=== PATIENT | male | born 1990 | race Caucasian/White ===

== ENCOUNTER 2018-10-10 20:47 | Emergency (ER) | payer SELFPAY ==
[~2018-10-10] VITALS: Ht 185.4 cm; Wt 88.6 kg
[2018-10-10] MEDS ORDERED: HALOPERIDOL 5 MG/ML VIAL (J1630) IM ONE (21:00)
[2018-10-10] MEDS ORDERED: diphenhydrAMINE INJ 50MG/ML VIAL (J1200) IM ONE (21:00)
[2018-10-10 21:48] LABS: HEMATOCRIT 42.9 % (42.0-52.0); HEMOGLOBIN 14.5 g/dl (13.5-17.5); MEAN CORPUSCULAR HEMOGLOBIN 31.3 pg (27.0-33.0); MEAN CORPUSCULAR HGB CONC 33.8 g/dl (32.0-36.5); MEAN CORPUSCULAR VOLUME 92.5 fl (80.0-96.0); PLATELET COUNT, AUTOMATED 194 10^3/uL (150-450); RED BLOOD COUNT 4.64 10^6/uL (4.30-6.10); WHITE BLOOD COUNT 8.8 10^3/uL (4.0-10.0)
[2018-10-10] MEDS ORDERED: HALOPERIDOL 5 MG/ML VIAL (J1630) IM STA (21:58)
[2018-10-10 22:39] LABS: ALT/SGPT 64 U/L (12-78); BILIRUBIN,DIRECT 0.2 MG/DL (0.0-0.2); BILIRUBIN,TOTAL 0.7 MG/DL (0.2-1.0); BLOOD UREA NITROGEN 12 MG/DL (7-18); CALCIUM LEVEL 8.6 MG/DL (8.5-10.1); CARBON DIOXIDE LEVEL 25 MEQ/L (21-32); CHLORIDE LEVEL 107 MEQ/L (98-107); CREATININE FOR GFR 1.12 MG/DL (0.70-1.30); GLOMERULAR FILTRATION RATE > 60.0 (>60); GLUCOSE, FASTING 120 MG/DL (70-100); POTASSIUM SERUM 3.6 MEQ/L (3.5-5.1); SALICYLATE LEVEL < 1.7 MG/DL (5.0-30.0); SODIUM LEVEL 142 MEQ/L (136-145); TOTAL PROTEIN 7.7 GM/DL (6.4-8.2)
[2018-10-10 22:42] LABS: ACETAMINOPHEN LEVEL < 2.0 UG/ML (10.0-30.0); ETHYL ALCOHOL (ETHANOL) < 0.003 % (0.000-0.010)
--- NOTE | 2018-10-10 22:55 | REPVR ---
EXAM: CT Head Without Contrast EXAM DATE/TIME: 10/10/2018 10:32 PM CLINICAL HISTORY: 28 years old, male; Injury or trauma; Injury history: Hit head off wall multiple times; Initial encounter; Blunt trauma (contusions or hematomas); Consciousness not specified; Additional info: Tr TECHNIQUE: Imaging protocol: Axial computed tomography images of the head without contrast. Radiation optimization: All CT scans at this facility use at least one of these dose optimization techniques: automated exposure control; mA and/or kV adjustment per patient size (includes targeted exams where dose is matched to clinical indication); or iterative reconstruction. COMPARISON: No relevant prior studies available. FINDINGS: Brain: Normal. No hemorrhage. Unremarkable white matter. No mass effect. Ventricles: Normal. No ventriculomegaly. Bones/joints: Unremarkable. No acute fracture. Sinuses: Visualized sinuses are unremarkable. No fluid levels. Mastoid air cells: Visualized mastoid air cells are well aerated. No mastoid effusion. Soft tissues: Frontal scalp injury. IMPRESSION: No acute intracranial abnormality. Electronically signed by: Елена Plasencia On 10/10/2018 22:55:10 PM
[2018-10-10 23:40] VITALS: BP 114/59
[2018-10-10 23:58] LABS: AMPHETAMINES LEVEL URINE POSITIVE (NEGATIVE); BARBITURATES URINE NEGATIVE (NEGATIVE); BENZODIAZEPINES URINE NEGATIVE (NEGATIVE); CANNABINOIDS URINE NEGATIVE (NEGATIVE); COCAINE METABOLITE URINE POSITIVE (NEGATIVE); METHADONE URINE NEGATIVE (NEGATIVE); OPIATES URINE POSITIVE (NEGATIVE); PHENCYCLIDINE URINE NEGATIVE (NEGATIVE)
== END 2018-10-11 00:28 | disposition home or self-care (01) ==
LOC: M ED 20:47
DX: F19.10 Other psychoactive substance abuse, uncomplicated (principal); F98.9 Unspecified behavioral and emotional disorders with onset usually occurring in childhood and adolescence; Z78.1 Physical restraint status
CPT/HCPCS: 36415; 70450; 80048; 80076; 80307; 84443; 85027; 96372; 99285; G0480; J1200; J1630

== ENCOUNTER 2019-08-08 08:58 | Emergency (ER) | payer MEDICAID, SELFPAY ==
[~2019-08-08] VITALS: Ht 185.4 cm; Wt 86.0 kg
[2019-08-08] MEDS ORDERED: NS 1,000 ML IV ONE (09:30)
[2019-08-08] MEDS ORDERED: ONDANSETRON 4MG/2ML VIAL IV ONE (10:00)
[2019-08-08] MEDS ORDERED: MORPHINE 2 MG/ML 1ML VIAL (J2270) IV PRN (10:00)
[2019-08-08 10:05] LABS: BASO # 0.1 10^3/uL (0.0-0.2); BASO % 0.6 % (0.0-1.0); EOS # 0.2 10^3/uL (0.0-0.5); EOS % 1.7 % (0.0-3.0); HEMATOCRIT 32.1 % (42.0-52.0); HEMOGLOBIN 10.4 g/dl (13.5-17.5); LYMPH # 2.4 10^3/uL (1.5-5.0); LYMPH % 25.2 % (24.0-44.0); MEAN CORPUSCULAR HEMOGLOBIN 28.9 pg (27.0-33.0); MEAN CORPUSCULAR HGB CONC 32.4 g/dl (32.0-36.5); MEAN CORPUSCULAR VOLUME 89.2 fl (80.0-96.0); MONO # 1.2 10^3/uL (0.0-0.8); MONO % 12.9 % (0.0-5.0); NEUTROPHILS # 5.6 10^3/uL (1.5-8.5); NEUTROPHILS % 59.2 % (36.0-66.0); PLATELET COUNT, AUTOMATED 253 10^3/uL (150-450); WHITE BLOOD COUNT 9.5 10^3/uL (4.0-10.0)
[2019-08-08 10:16] LABS: INR 1.04; PROTHROMBIN TIME 13.3 SECONDS (11.8-14.0)
[2019-08-08 10:17] LABS: PARTIAL THROMBOPLASTIN TIME 35.8 SECONDS (25.0-38.4)
[2019-08-08 10:36] LABS: ALBUMIN 3.2 GM/DL (3.2-5.2); ALT/SGPT 48 U/L (12-78); AMYLASE 22 U/L (25-115); BILIRUBIN,DIRECT 0.2 MG/DL (0.0-0.2); BILIRUBIN,TOTAL 0.7 MG/DL (0.2-1.0); C REACTIVE PROTEIN QUANTITATIV 6.57 MG/DL (0.00-0.30); CK-MB VALUE MASS 1.6 NG/ML (<3.6); CPK CREATINE PHOSPHOKINASE 65 U/L (39-308); LIPASE 58 U/L (73-393); MB/CK RELATIVE INDEX 2.46 (< OR =4); TOTAL PROTEIN 7.9 GM/DL (6.4-8.2); TROPONIN I < 0.02 NG/ML (< 0.10)
[2019-08-08 10:37] LABS: ERYTHROCYTE SEDIMENTATION RATE 109 mm/hr (0-15)
--- NOTE | 2019-08-08 11:33 | REP ---
Clinical: Pain. Redness. Technique: AP, lateral, bilateral oblique views of the left ankle. Findings: Swelling suggested. No acute fracture or dislocation. Ankle mortise intact. Impression: Soft-tissue swelling. No acute fracture. Electronically Signed by Oscar Rajput MD 08/08/2019 11:25 A
--- NOTE | 2019-08-08 11:34 | REP ---
Clinical: Rule out foreign body. IVDA. Comparison: None . Findings: The mediastinum and cardiac silhouette are stable and within normal limits for portable technique. The lung carter are clear without acute consolidation, effusion, or pneumothorax. Skeletal structures are intact. No foreign body identified. Impression: No acute cardiopulmonary process appreciated. Electronically Signed by Oscar Rajput MD 08/08/2019 11:26 A
--- NOTE | 2019-08-08 11:35 | REP ---
Clinical: IVDA. Rule out foreign body. Technique: Single supine view of the abdomen and pelvis. Findings: Bowel gas pattern is nonspecific. No organomegaly. No abnormal calcifications or foreign body. Skeletal structures are intact. Impression: Nonspecific abdominal radiograph. Electronically Signed by Oscar Rajput MD 08/08/2019 11:27 A
--- NOTE | 2019-08-08 11:37 | REP ---
Clinical: Rule out foreign body. IUDA. Technique: AP, lateral, and swimmers views. Findings: No acute fracture / compression injury or subluxation. No significant degenerative changes. Paravertebral soft tissues are normal. No foreign body identified. Impression: No foreign body identified. Electronically Signed by Oscar Rajput MD 08/08/2019 11:28 A
--- NOTE | 2019-08-08 11:38 | REP ---
Clinical: IVDA. Foreign body. Technique: AP, lateral, bilateral oblique, and coned-down views. Findings: Alignment and lordosis is maintained. The vertebral bodies including transverse process and spinous processes are intact and normal. There is no evidence for acute fracture / compression injury or subluxation. No evidence for spondylolysis or spondylolisthesis. No significant degenerative change is noted. No foreign body identified. Impression: Normal lumbosacral spine radiograph series. Electronically Signed by Oscar Rajput MD 08/08/2019 11:29 A
[2019-08-08] MEDS ORDERED: PROHANCE 279.3MG/ML 5ML VIAL As Ordered ONE (12:08)
[2019-08-08] MEDS ORDERED: PROHANCE 279.3MG/ML 15ML VIAL As Ordered ONE (12:09)
[2019-08-08] MEDS ORDERED: diazePAM 10MG/2ML SYRINGE (J3360 PER 5MG) IV ONE (13:45)
[2019-08-08] MEDS ORDERED: VANCOMYCIN HCL 1,750 MG in D5W 250 ML IV ONE (15:45)
[2019-08-08] MEDS ORDERED: VANCOMYCIN HCL 1,000 MG, VIAL MATE ADAPTER 1 EACH in D5W 250 ML IV ONE (16:00)
[2019-08-08] MEDS ORDERED: ACETAMINOPHEN 325 MG TAB PO ONE (16:00)
[2019-08-08] MEDS ORDERED: VANCOMYCIN HCL 750 MG, VIAL MATE ADAPTER 1 EACH in D5W 250 ML IV ONE (16:00)
[2019-08-08] MEDS ORDERED: CEFEPIME HCL 2 GM in D5W MINI-BAG PLUS 50 ML IV ONE (16:00)
[2019-08-08 18:10] VITALS: BP 120/69
--- NOTE | 2019-08-08 19:30 | ECGEPIP ---
[facility] - ED Test Date: 2019-08-08 Pat Name: MARISSA GREEN Department: Room: - Gender: Male Rand Sewer: evaristo : 1990 Requested By: Justin Louise Order Number: [id number] Reading MD: Justin Louise Measurements Intervals [place] Rate: 82 P: 35 WV: 151 QRS: 65 QRSD: 93 T: 21 QT: 354 QTc: 414 Interpretive Statements SINUS RHYTHM NONSPECIFIC ST T WAVE CHANGES NO PRIOR ECG FOR COMPARISON DELAYED R WAVE PROGRESSION Electronically Signed on 08-08-2019 19:29:54 EDT by Justin Louise
== END 2019-08-08 18:19 | disposition short-term general hospital (02) ==
LOC: M ED 08:58
DX: G06.2 Extradural and subdural abscess, unspecified (principal); L03.116 Cellulitis of left lower limb; F19.10 Other psychoactive substance abuse, uncomplicated; M25.572 Pain in left ankle and joints of left foot; Z87.891 Personal history of nicotine dependence
CPT/HCPCS: 36415; 71045; 72072; 72110; 72157; 72158; 73610; 74018; 80047; 80076; 81001; 82150; 82550; 82553; 83605; 83690; 85025; 85610; 85652; 85730; 86140; 86850; 86900; 86901; 87040; 93005; 93041; 96365; 96366; 96368; 96375; 99285; A9576; J0692; J2270; J2405; J3360; J3370

== ENCOUNTER 2019-08-27 07:54 | Inpatient (IN) | payer MEDICAID, OTHER ==
[~2019-08-27] VITALS: Ht 185.4 cm; Wt 88.0 kg
[2019-08-27] MEDS ORDERED: LORazepam 2 MG TAB PO STA (07:56)
[2019-08-27 08:36] LABS: HEMOGLOBIN 11.1 g/dl (13.5-17.5); MEAN CORPUSCULAR HGB CONC 32.6 g/dl (32.0-36.5); MEAN CORPUSCULAR VOLUME 88.8 fl (80.0-96.0); PLATELET COUNT, AUTOMATED 209 10^3/uL (150-450); RED BLOOD COUNT 3.83 10^6/uL (4.30-6.10); WHITE BLOOD COUNT 7.6 10^3/uL (4.0-10.0)
[2019-08-27] MEDS ORDERED: HYDR-3363 PO (09:00)
[2019-08-27] MEDS ORDERED: MAG400TA PO (09:00)
[2019-08-27] MEDS ORDERED: LEVO750T13 PO (09:00)
[2019-08-27] MEDS ORDERED: VITMTA PO (09:00)
[2019-08-27 09:04] LABS: ERYTHROCYTE SEDIMENTATION RATE 63 mm/hr (0-15)
[2019-08-27 09:09] LABS: ACETAMINOPHEN LEVEL < 2.0 UG/ML (10.0-30.0); ALBUMIN 3.6 GM/DL (3.2-5.2); ALT/SGPT 124 U/L (12-78); BILIRUBIN,DIRECT 0.3 MG/DL (0.0-0.2); BILIRUBIN,TOTAL 0.9 MG/DL (0.2-1.0); BLOOD UREA NITROGEN 17 MG/DL (7-18); CALCIUM LEVEL 9.1 MG/DL (8.5-10.1); CARBON DIOXIDE LEVEL 24 MEQ/L (21-32); CHLORIDE LEVEL 105 MEQ/L (98-107); ETHYL ALCOHOL (ETHANOL) < 0.003 % (0.000-0.010); GLOMERULAR FILTRATION RATE > 60.0 (>60); GLUCOSE, FASTING 89 MG/DL (70-100); POTASSIUM SERUM 3.6 MEQ/L (3.5-5.1); SALICYLATE LEVEL < 1.7 MG/DL (5.0-30.0); SODIUM LEVEL 140 MEQ/L (136-145)
[2019-08-27 10:11] LABS: AMPHETAMINES LEVEL URINE NEGATIVE (NEGATIVE); BARBITURATES URINE NEGATIVE (NEGATIVE); BENZODIAZEPINES URINE NEGATIVE (NEGATIVE); CANNABINOIDS URINE NEGATIVE (NEGATIVE); COCAINE METABOLITE URINE POSITIVE (NEGATIVE); METHADONE URINE NEGATIVE (NEGATIVE); OPIATES URINE POSITIVE (NEGATIVE); PHENCYCLIDINE URINE NEGATIVE (NEGATIVE)
[2019-08-27] MEDS ORDERED: LIDOCAINE 1% MDV 20ML VIAL As Ordered ONE (13:05)
[2019-08-27] MEDS ORDERED: ACETAMINOPHEN TAB 650MG DOSE (2X325MG) PO PRN (14:30)
[2019-08-27 15:30] VITALS: BP 160/77
[2019-08-27] MEDS: CEFEPIME HCL 2 GM in D5W MINI-BAG PLUS 50 ML IV SCH ×2 (15:45→23:44)
[2019-08-27] MEDS ORDERED: SLF 3 ML SYR IV PRN (16:00)
--- NOTE | 2019-08-27 16:06 | HPEPDOC ---
General Date of Admission August 27, 2019 at 14:19 Date of Service: August 27, 2019 Chief Complaint The patient is a 29-year-old male who was brought to the ER after he was found with holding a machete at a car wash History of Present Illness Patient is a 29-year-old male with a PMHx of Substance abuse (with Intravenous Methamphetamines and Opiates), Hepatitis C, Anemia, who was recently found to have Osteomyelitis / Diskitis of T8-T9. Patient had originally presented to [facility] on 08/08/19 with complaints of back pain. Imaging completed via MRI head revealed evidence of phlegmon/abscess at the posterior aspect of T8/T9 extending to the right with narrowing of the right lateral recess and compression of the thecal sac. Patient was subsequently transferred to [facility] for further management. Upon transfer to [facility], patient received an IR guided biopsy on 08/09, which had revealed acute and chronic osteomyelitis. Orthopedic surgery was consult and had not recommended any surgery, but did recommended TLSO brace. An echocardiogram was performed and was negative for any evidence of endocarditis. Blood cultures were positive for Enterobacter cloacae. Infectious disease had recommended cefepime 2 g every 8 for total of 6 weeks duration, starting 08/11. Patient was ultimately discharged from [facility] and transferred to [facility] for drug rehabilitation on 08/12. Patient had ultimately left [facility] on 08/20 because he had reported that his girlfriend had left him. Hospitalist service was called for evaluation. Patient was seen and examined while in the behavioral health section of the emergency room. Currently patient denies any headache, nausea, vomiting, chest pain, short of breath, palpitations, abdominal pain, constipation, diarrhea, or urinary discomfort. Patient is not aware of any recent fevers or chills. Patient reports his appetite is fairly normal. Has not reported any significant changes in his weight. Home Medications Scheduled Levofloxacin (Levofloxacin) 750 Mg Tablet, 750 MG PO DAILY, (Reported) FILLED 08/22/19 FOR 14 DAYS Magnesium Oxide (Magnesium Oxide) 400 Mg Tablet, 400 MG PO DAILY, (Reported) Multivitamins (Thera M Plus Tablet) 1 Each Tablet, 1 TAB PO DAILY, (Reported) Scheduled PRN Hydroxyzine HCl (Hydroxyzine HCl) 25 Mg Tablet, 25 MG PO TID PRN for ANXIETY, (Reported) Allergies Coded Allergies: No Known Allergies (Unverified , 10/11/18) Past Medical History Medical History Substance abuse (with Intravenous Methamphetamines and Opiates) Hepatitis C Anemia, Osteomyelitis / Diskitis of T8-T9 Surgical History Patient denies any prior surgical history other than the biopsy that was completed on 08/09 Family History - No history of malignancies Social History - Denies the use of tobacco; patient reports social alcohol use. He does report the use intravenous methamphetamines - Denies recent travel or sick contacts - Lives alone - Unemployed Review of Systems Other systems 10 point review of systems complete, all negative otherwise stated in HPI Vital Signs - Vitals: BP 132/76, HR 82, RR 20, Sat 99%RA, Temp 98.2F - General: Sitting up in bed and eating a meal, Speaking in full sentences, He is oriented to person / place / time - HEENT: NC, AT, PERRLA - CVS: RRR, +S1S2 - Lungs: Fair air entry bilaterally, No appreciable wheezing / rales / rhonchi - Abdomen: Soft, Non-distended, Non-tender - Extremities: Trace pitting edema bilaterally (R>L), No calf tenderness - Neuro: No focal motor or sensory deficit - Skin: No visible rashes Laboratory Data Labs 24H Laboratory Tests 2 08/27/19 07:57: Urine Opiates Screen POSITIVEH, Urine Methadone Screen NEGATIVE, Urine Barbiturates Screen NEGATIVE, Urine Phencyclidine Screen NEGATIVE, Urine Amphetamines Screen NEGATIVE, Urine Benzodiazepines Screen NEGATIVE, Urine Cocaine Metabolite Screen POSITIVEH, Urine Cannabinoids Screen NEGATIVE 08/27/19 08:14: Lactic Acid Level 1.0 08/27/19 08:15: Nucleated Red Blood Cells % (auto) 0.0, Erythrocyte Sedimentation Rate 63H, Anion Gap 11, Glomerular Filtration Rate > 60.0, Calcium Level 9.1, Total Bilirubin 0.9, Direct Bilirubin 0.3H, Aspartate Amino Transf (AST/SGOT) 188H, Alanine Aminotransferase (ALT/SGPT) 124H, Alkaline Phosphatase 95, C-Reactive Protein, Quantitative 13.80H, Total Protein 8.0, Albumin 3.6, Albumin/Globulin Ratio 0.8, Thyroid Stimulating Hormone (TSH) 1.150, Salicylates Level < 1.7L, Acetaminophen Level < 2.0L, Ethyl Alcohol Level < 0.003 CBC/BMP Laboratory Tests 08/27/19 08:15 Microbiology Microbiology 08/27/19 Blood Culture, Received Pending 08/27/19 Blood Culture, Received Pending Plan / VTE VTE Prophylaxis Ordered?: Yes Plan Plan Acute on Chronic osteomyelitis of T8/9 - 2/2 Enterobacter cloacae - likely 2/2 IV drug abuse - Patient was recently diagnosed via biopsy at [facility] on 08/09 with acute on chronic osteomyelitis - Medical records from [facility] have been reviewed - Physical currently does not reveal any focal neurologic deficits - She is hemodynamically stable and afebrile - ESR and CRP are elevated; no leukocytosis or lactic acidosis - Will keep patient on telemetry monitoring - Will check blood cultures will check ECHO - Will start patient on cefepime 2 g every 8 hours; based on prior susceptibilities from [facility] - Discussed case with infectious disease will also be on consultation; will discuss case with ID at [facility] LE Edema (R>L) - Patient is saturating well on room air and he does not appear to be in any respiratory distress - Patient is unsure how long hes been experiencing leg swelling - Echocardiogram completed at [facility] 08/08: Normal LV systolic function, EF 62%, no regional wall motion abnormalities, no evidence of diastolic dysfunction, rales, appear to be structurally normal, no pericardial effusion, normal IVC with preserved inspiratory collapse - Will check duplex ultrasound of lower extremities as well as echocardiogram Questionable suicidal ideation - Patient was brought to emergency room after he was found wielding a machete - Patient was reported to have made suicidal ideation statements - Upon questioning. Currently, he has denied any suicidal or homicidal ideation - He indicated that he had a knife because he was planning to sell it for drugs - Will continue with bedside sitter and suicidal precautions - Case discussed with psychiatry and will be performing a consultation Substance abuse - Hx of Intravenous Methamphetamines and Opiates - Urine chemistry on 08/26 was positive Hepatitis C - Elevation of AST, ALT - Will continue to monitor trend - Will check US Liver Anemia - Hg appears to be at similar level compared to 08/07 - No evidence of bleeding - Will continue to monitor DVT prophylaxis - Will start Heparin SQ GARCIA JOHNSON MD August 27, 2019 16:05
[2019-08-27] MEDS ORDERED: hydrOXYzine 25 MG TAB PO PRN (16:15)
--- NOTE | 2019-08-27 17:03 | REP ---
Duplex extremity venous ultrasound: Bilateral lower extremities. History: Bilateral lower extremity swelling, right greater than left. Findings: The deep veins are anechoic and fully compressible from the groin to the popliteal fossa in the left and right lower extremity. Color flow imaging is homogeneous. Spectral Doppler interrogation demonstrates intact respiratory variation in flow and normal manual augmentation of flow. There is no evidence of deep vein thrombosis. Multiple hypertrophied lymph nodes are noted in the inguinal soft tissues bilaterally. The largest on the right measures 3.7 x 2.0 x 1.0 cm. The largest lymph node on the left measures 2.6 x 0.9 x 2.0 cm. Impression: Bilateral inguinal adenopathy. Otherwise negative bilateral lower extremity duplex venous ultrasound. No evidence of deep vein thrombosis. Electronically Signed by Francisco Hollis MD 08/27/2019 04:55 P
[2019-08-27 20:00] VITALS: BP 138/88
[2019-08-27] MEDS: HEPARIN SOD (PORCINE) 5000UNITS/ML VIAL (J1644 PER 1000UNITS) SC SCH ×2 (20:35→20:38)
[2019-08-27] MEDS: SLF 3 ML SYR IV SCH (20:36)
[2019-08-28] VITALS: BP 113/86
--- NOTE | 2019-08-28 02:15 | REP ---
Clinical: Elevated liver function tests. Technique: Real time de jesus scale ultrasound examination using curved array transducer. Findings: Liver and pancreas are normal in contour, size, echogenicity without focal hepatic or pancreatic lesion identified. Gallbladder is normal and without gallstones, wall thickening, or pericholecystic fluid. Biliary ductal dilatation is appreciated and the common bile duct measures 5 mm diameter. Right kidney is normal in reniform shape without hydronephrosis and measures 11.9 x 7.0 x 5.1 cm. Impression: Normal liver and right upper quadrant ultrasound. Electronically Signed by Oscar Rajput MD 08/28/2019 02:07 A
[2019-08-28 04:00] VITALS: BP 139/70
[2019-08-28] MEDS: SLF 3 ML SYR IV SCH ×2 (05:57→14:00)
[2019-08-28] MEDS: HEPARIN SOD (PORCINE) 5000UNITS/ML VIAL (J1644 PER 1000UNITS) SC SCH ×2 (05:57→14:00)
[2019-08-28 06:14] LABS: BASO % 0.7 % (0.0-1.0); EOS # 0.3 10^3/uL (0.0-0.5); EOS % 7.8 % (0.0-3.0); HEMOGLOBIN 10.4 g/dl (13.5-17.5); LYMPH # 0.8 10^3/uL (1.5-5.0); LYMPH % 18.9 % (24.0-44.0); MEAN CORPUSCULAR HEMOGLOBIN 29.1 pg (27.0-33.0); MEAN CORPUSCULAR HGB CONC 32.5 g/dl (32.0-36.5); MEAN CORPUSCULAR VOLUME 89.6 fl (80.0-96.0); MONO # 0.5 10^3/uL (0.0-0.8); MONO % 11.5 % (0.0-5.0); NEUTROPHILS # 2.7 10^3/uL (1.5-8.5); NEUTROPHILS % 60.9 % (36.0-66.0); PLATELET COUNT, AUTOMATED 167 10^3/uL (150-450); RED BLOOD COUNT 3.57 10^6/uL (4.30-6.10); WHITE BLOOD COUNT 4.4 10^3/uL (4.0-10.0)
[2019-08-28 06:36] LABS: ERYTHROCYTE SEDIMENTATION RATE 52 mm/hr (0-15)
[2019-08-28] MEDS: CEFEPIME HCL 2 GM in D5W MINI-BAG PLUS 50 ML IV SCH (08:00)
[2019-08-28 08:05] LABS: ALT/SGPT 216 U/L (12-78); BILIRUBIN,DIRECT 0.2 MG/DL (0.0-0.2); BILIRUBIN,TOTAL 0.5 MG/DL (0.2-1.0); BLOOD UREA NITROGEN 12 MG/DL (7-18); C REACTIVE PROTEIN QUANTITATIV 8.04 MG/DL (0.00-0.30); CALCIUM LEVEL 8.1 MG/DL (8.5-10.1); CARBON DIOXIDE LEVEL 28 MEQ/L (21-32); CHLORIDE LEVEL 107 MEQ/L (98-107); CREATININE FOR GFR 0.62 MG/DL (0.70-1.30); GLOMERULAR FILTRATION RATE > 60.0 (>60); GLUCOSE, FASTING 108 MG/DL (70-100); MAGNESIUM LEVEL 1.7 MG/DL (1.8-2.4); POTASSIUM SERUM 3.7 MEQ/L (3.5-5.1); SODIUM LEVEL 142 MEQ/L (136-145)
[2019-08-28 08:22] LABS: TOTAL PROTEIN 6.1 GM/DL (6.4-8.2)
[2019-08-28 08:26] LABS: ALBUMIN 2.6 GM/DL (3.2-5.2)
[2019-08-28] MEDS ORDERED: MAGNESIUM OXIDE 400 MG TAB (MAG-OX) PO SCH (09:00)
[2019-08-28] MEDS ORDERED: MULTIVITAMINS/MINERALS THERAP 1 TAB PO SCH (09:00)
--- NOTE | 2019-08-28 09:52 | IPNPDOC ---
Text Note Date of Service The patient was seen on 08/28/19. NOTE Subjective: Patient seen and examined at bedside. No acute overnight events reported. Patient was somnolent but easily arousable during examination. Reported by nursing later in the morning that he was planning on leaving AMA after his shower. He later changed his mind, agreeing to stay, but refusing treatment. Patient is a 29-year-old male with a PMHx of Substance abuse (with Intravenous Methamphetamines and Opiates), Hepatitis C, Anemia, who was recently found to have Osteomyelitis / Diskitis of T8-T9. Patient had originally presented to [facility] on 08/08/19 with complaints of back pain. Imaging completed via MRI head revealed evidence of ph legmon/abscess at the posterior aspect of T8/T9 extending to the right with narrowing of the right lateral recess and compression of the thecal sac. Patient was subsequently transferred to [facility] for further management. Upon transfer to [facility], patient received an IR guided biopsy on 08/09, which had revealed acute and chronic osteomyelitis. Orthopedic surgery was consult and had not recommended any surgery, but did recommended TLSO brace. An echocardiogram was performed and was negative for any evidence of endocarditis. Blood cultures were positive for Enterobacter cloacae. Infectious disease had recommended cefepime 2 g every 8 for total of 6 weeks duration, starting 08/11. Patient was ultimately discharged from [facility] and transferred to [facility] for drug rehabilitation on 08/12. Patient had ultimately left [place] on 08/20 because he had reported that his girlfriend had left him. Objective: Physical Exam Vitals: See below General: somnolent, easily arousable, answers questions with prompting HEENT: NC/AT, PERRL Heart: +S1S2, RRR, -M/R/G Lungs: CTA B/L Abd: soft, NT, +BS Ext: 2-3+ LE edema R>L Neuro: No focal motor or sensory deficit Skin: No visible rashes Assessment/Plan: #discitis/osteomyelitis - T8/9 - 2/2 Enterobacter cloacae - likely 2/2 IV drug abuse - Patient was recently diagnosed via biopsy at [facility] on 08/09 with acute on chronic osteomyelitis - Medical records from [facility] have previously been reviewed - does not reveal any focal neurologic deficits - hemodynamically stable and afebrile - ESR and CRP are elevated, but trending down - Will keep patient on telemetry monitoring - Will check blood cultures - negative to date; will check ECHO - Will start patient on cefepime 2 g every 8 hours; based on prior susceptibilities from [facility] - ID c/s pending - assistance appreciated #LE Edema (R>L) - Patient is unsure how long hes been experiencing leg swelling - Echocardiogram completed at [facility] 08/08: Normal LV systolic function, EF 62%, no regional wall motion abnormalities, no evidence of diastolic dysfunction, rales, appear to be structurally normal, no pericardial effusion, normal IVC with preserved inspiratory collapse - duplex ultrasound of lower extremities shows bilateral inguinal adenopathy - echocardiogram pending #B/L inguinal adenopathy - as noted on imaging #Questionable suicidal ideation - Patient was brought to emergency room after he was found wielding a machete - Patient was reported to have made suicidal ideation statements - Upon questioning - denied any suicidal or homicidal ideation - indicated that he had a knife because he was planning to sell it for drugs - Will continue with bedside sitter and suicidal precautions - psych c/s pending #Substance abuse - Hx of Intravenous Methamphetamines and Opiates - urine tox screen on 08/26 was positive for opiates/cocaine #Hepatitis C - Elevation of AST, ALT - Will continue to monitor trend - US Liver unremarkable #Anemia - Hg appears to be at similar level compared to 08/07 - No evidence of bleeding - Will continue to monitor #DVT prophylaxis - Heparin SQ Dispo: Pending ID c/s, psych c/s VS,Fishbone, I+O VS, Fishbone, I+O Laboratory Tests 08/28/19 05:12 Vital Signs Date Time Temp Pulse Resp B/P (MAP) Pulse Ox O2 Delivery O2 Flow Rate FiO2 08/28/19 04:00 97.6 76 18 139/70 (93) 99 Room Air I&O- Last 24 Hours up to 6 AM 08/28/19 06:00 Intake Total 1355 ml Output Total 0 ml Balance 1355 ml CHERYLE BUCKLEY MD August 28, 2019 09:49
--- NOTE | 2019-08-28 11:24 | CR ---
DATE OF CONSULTATION: 08/27/2019 Asked to consult by Dr. Dietz for evaluation of T8-T9 discitis. HISTORY OF PRESENT ILLNESS: Joel is a 29-year-old gentleman who came into [facility] on 08/08/2019 with mid thoracic back pain. The patient had an MRI, which revealed phlegmon abscess at T8-T9 extending to the right lateral recess and compression of the thecal sac. The patient was transferred to [facility] for further management. He was there until 08/13/2019. He had a peripherally inserted central catheter (PICC) line placed, epidural and biopsy done of T8-T9, which showed acute on chronic osteomyelitis. Culture was positive for Enterobacter cloacae complex, which was sensitive to gentamicin, Bactrim, tazobactam, ciprofloxacin, levofloxacin, meropenem, ceftazidime, ceftriaxone, tobramycin, and cefepime. The patient was treated with IV cefepime 2 grams every 8 hours for a total of 6 weeks. He was transferred to [facility] for rehab and IV antibiotics but left against medical advice on 08/21/2019, because he states his girlfriend left him. The patient was brought in by the police after he was found to be holding a machete at a car wash. He was admitted to the floor asking to leave has agreed to stay 1 day. He denies any headache. No nausea, vomiting or diarrhea. No chest pain or shortness of breath. He states his pain is slightly better. He has no abdominal pain, constipation or diarrhea. MEDICATIONS: - levofloxacin filled on 08/22/2019 for 14 days - magnesium oxide 400 mg daily - multivitamin 1 tablet daily - We started IV cefotaxime 2 grams every 8 since he has been here. ALLERGIES: NO KNOWN DRUG ALLERGIES. PAST MEDICAL HISTORY: Includes substance abuse including IV methamphetamine and opiates, chronic hepatitis C, anemia of chronic disease, osteomyelitis, discitis, and epidural abscess of T8-T9 with Enterobacter cloacae complex that is post biopsy on 08/12/2019 at [facility]. SURGICAL HISTORY: Negative. FAMILY HISTORY: Nonrevealing. SOCIAL HISTORY: He does not smoke but drinks alcohol and used IV methamphetamines. Lives alone in [place]. On physical exam, he is healthy-looking, somewhat agitated gentleman, in no acute distress. Temperature is 98.9, pulse 89, respirations 18, blood pressure 160/77, oxygen saturation 100% on room air. Heart: Normal S1, S2. No murmur, rubs or gallops. Lungs are clear. No wheezes, rales or rhonchi. Abdomen: Soft, nontender. No hepatomegaly. Back: No costovertebral angle (CVA) tenderness. He has mild T8-T9 tenderness. No swelling. Extremities: +1 bilateral pitting edema with erythema of both feet. Tattoos. +1 dorsalis pedis pulses. Neurologic: Exam normal. The patient is able to sit up on his own, although somewhat lethargic. LABORATORY DATA: White count is 7.6, hemoglobin 11.1, hematocrit 34, and platelets 209. ESR 63, down from 109. Sodium 140, potassium 3.6, chloride 105, bicarbonate 24, BUN 17, creatinine 0.9, glucose 89. Magnesium 2, bilirubin 0.90, AST 180, ALT 124, alkaline phosphatase 95, CRP 13.8, total protein 8, albumin 8, TSH 1.15. Micro: Stool cultures two set that were done on 08/08/2019 are negative. Blood cultures on 08/27/19 two sets are pending. Vascular ultrasound of lower extremities showed bilateral inguinal adenopathy, otherwise negative. No deep venous thrombosis (DVT). Largest lymph nodes on right side measures 3.7 x 2.1 cm and on the left side 2.9 x 2 cm. Liver ultrasound is pending. Lumbar thoracic spine MRI done on 08/08/2019 does not have any read. IMPRESSION: This is a 29-year-old gentleman with a history of IV drug use, especially methamphetamines and opiates, with chronic hepatitis C, T8-T9 discitis and epidural abscess who was brought in agitated and confused. He was restarted on IV cefepime at a dose of 2 grams every 8 hours, but the patient is threatening to leave again. He has swelling of both lower extremities with bilateral inguinal adenopathy, mild erythema of both legs could be a superimposed bacterial infection from being barefoot. Possibly also from injection drug use. PLAN: Continue with cefepime. Obtain MRSA screen. If MRSA is positive, would add as well vancomycin for lower extremity cellulitis. Otherwise, cefepime should be appropriate coverage. If the patient threatens to leave against medical advice (AMA) again, then he could continue with his levofloxacin course for a total of 4 weeks. Will add an HIV and syphilis testing. As far as his hepatitis C, further workup will be done as an outpatient. ANNELISE
[2019-08-28 12:00] VITALS: BP 137/81
[2019-08-28 12:04] LABS: HIV 1&2 SCREEN CENTAUR NEGATIVE (NEGATIVE)
[2019-08-28] MEDS ORDERED: LevoFLOXacin 750 MG TABLET PO ONE (12:15)
--- NOTE | 2019-08-28 16:18 | DS.PDOC ---
Discharge Summary General Date of Admission August 27, 2019 at 14:19 Date of Discharge 08/28/19 Specialist/Consultants Involve Infectious disease Psychiatry Discharge Summary PROCEDURES PERFORMED DURING STAY: [None]. ADMITTING DIAGNOSES: 1. . DISCHARGE DIAGNOSES: 1. . COMPLICATIONS/CHIEF COMPLAINT: Infection Caused By Enterobacter Cloacae. HOSPITAL COURSE: Patient is a 29-year-old male with a PMHx of Substance abuse (with IV Methamphetamines and Opiates), Hepatitis C, Anemia, who was recently found to have Osteomyelitis / Diskitis of T8-T9. Patient had originally presented to [facility] on 08/08/19 with complaints of back pain. Imaging completed via MRI head revealed evidence of phlegmon/abscess at the posterior aspect of T8/T9 extending to the right with narrowing of the right lateral recess and compression of the thecal sac. Patient was subsequently transferred to [facility] for further management. Upon transfer to [facility], patient received an IR guided biopsy on 08/09, which had revealed acute and chronic osteomyelitis. Orthopedic surgery was consult and had not recommended any surgery, but did recommended TLSO brace. An echocardiogram was performed and was negative for any evidence of endocarditis. Blood cultures were positive for Enterobacter cloacae. Infectious disease had recommended cefepime 2 g every 8 for total of 6 weeks duration, starting 08/11. Patient was ultimately discharged from [facility] and transferred to [facility] for drug rehabilitation on 08/12. Patient had ultimately left AMA on 08/20 because he had reported that his girlfriend had left him. Patient was brought to ED by police, as he was found behaving erratically with a machete. Admitted and seen by psychiatry and infectious disease. Patient left AMA. DISCHARGE MEDICATIONS: Please see below. ALLERGIES: Please see below. PHYSICAL EXAMINATION ON DISCHARGE: VITAL SIGNS: Please see below. Vitals: See below General: somnolent, easily arousable, answers questions with prompting HEENT: NC/AT, PERRL Heart: +S1S2, RRR, -M/R/G Lungs: CTA B/L Abd: soft, NT, +BS Ext: 2-3+ LE edema R>L Neuro: No focal motor or sensory deficit Skin: No visible rashes LABORATORY DATA: Please see below. IMAGING: PROGNOSIS: Poor prognosis ACTIVITY: [As tolerated]. DIET: DISCHARGE PLAN: DISPOSITION: 07 Against Medical Advice. DISCHARGE INSTRUCTIONS: 1. . ITEMS TO FOLLOWUP ON ON OUTPATIENT: 1. . TIME SPENT ON DISCHARGE: Greater than 30 minutes. Vital Signs/I&Os Vital Signs Date Time Temp Pulse Resp B/P (MAP) Pulse Ox O2 Delivery O2 Flow Rate FiO2 08/28/19 12:00 98.2 76 18 137/81 (99) 100 Room Air I&O- Last 24 Hours up to 6 AM 08/28/19 06:00 Intake Total 1355 ml Output Total 0 ml Balance 1355 ml Laboratory Data Labs 24H Laboratory Tests 2 08/28/19 05:12: Immature Granulocyte % (Auto) 0.2, Neutrophils (%) (Auto) 60.9, Lymphocytes (%) (Auto) 18.9L, Monocytes (%) (Auto) 11.5H, Eosinophils (%) (Auto) 7.8H, Basophils (%) (Auto) 0.7, Neutrophils # (Auto) 2.7, Lymphocytes # (Auto) 0.8L, Monocytes # (Auto) 0.5, Eosinophils # (Auto) 0.3, Basophils # (Auto) 0.0, Nucleated Red Blood Cells % (auto) 0.0, Erythrocyte Sedimentation Rate 52H, Anion Gap 7L, Glomerular Filtration Rate > 60.0, Calcium Level 8.1L, Magnesium Level 1.7L, Total Bilirubin 0.5, Direct Bilirubin 0.2, Aspartate Amino Transf (AST/SGOT) 355H, Alanine Aminotransferase (ALT/SGPT) 216H, Alkaline Phosphatase 94, C- Reactive Protein, Quantitative 8.04H, Total Protein 6.1#L, Albumin 2.6#L, Albumin/Globulin Ratio 0.7, Syphilis Serology NONREACTIVE, HIV Antigen/Antibody Combo Qual NEGATIVE CBC/BMP Laboratory Tests 08/28/19 05:12 Microbiology Microbiology 08/27/19 Blood Culture - Preliminary, Resulted No growth after 24 hours . All specim... 08/27/19 Blood Culture - Preliminary, Resulted No growth after 24 hours . All specim... Discharge Medications Scheduled Levofloxacin (Levofloxacin) 750 Mg Tablet, 750 MG PO DAILY, (Reported) FILLED 08/22/19 FOR 14 DAYS Magnesium Oxide (Magnesium Oxide) 400 Mg Tablet, 400 MG PO DAILY, (Reported) Multivitamins (Thera M Plus Tablet) 1 Each Tablet, 1 TAB PO DAILY, (Reported) Scheduled PRN Hydroxyzine HCl (Hydroxyzine HCl) 25 Mg Tablet, 25 MG PO TID PRN for ANXIETY, (Reported) Allergies Coded Allergies: No Known Allergies (Unverified , 10/11/18) CHERYLE BUCKLEY MD August 28, 2019 16:17
--- NOTE | 2019-08-28 17:29 | IPN ---
DATE: 08/28/2019 Joel is on the phone with his girlfriend and is not interested in talking to me. He states he only wants to see the psychiatrist so he can go home. He has mild mid-thoracic back pain which is not any worse. He denies any discomfort in his feet. When asked if he knew they were red, he did not realize that. LABORATORIES: White count is 4.4, hemoglobin 10.4, hematocrit 32, platelets 167, 60% neutrophils, 19% lymphocytes, 11% monocytes. ESR 52, down from 63. Sodium 142, potassium 3.7, chloride 107, bicarbonate 28 BUN 12, creatinine 0.62, glucose 108, calcium 8.1, magnesium 1.7, AST 355, ALT 216, alkaline phosphatase 94. CRP 8.04, down from 13.8. HIV negative. Syphilis serology negative. Drug screen was positive for opiates and cocaine. Blood cultures two sets on 08/27/2019 are negative. MEDICATIONS: - cefepime 2 grams IV every 8 hours (patient has refused the dose this morning) Heart: Normal, S1, S2. No murmurs, rubs or gallops. Lungs: Clear. Back: Mid thoracic tenderness. Extremities: Bilateral erythema with scab hong below the knee. IMPRESSION: 1. T8-T9 discitis with culture positive for Enterobacter cloacae sensitive to levofloxacin. Patient has refused his cefepime. I doubt the patient will comply with his medication. Will start him on levofloxacin 750 mg daily if we can convince him to stay and take his IV antibiotics, then you can resume cefepime. 2. Lower extremity erythema with bilateral inguinal adenopathy possibly related to IV drug use. PLAN: Switch to levofloxacin 750 mg daily. Followup with infectious disease (ID) as an outpatient in 2 weeks. ANNELISE
[2019-08-29] MEDS ORDERED: LevoFLOXacin 750 MG TABLET PO SCH (06:00)
--- NOTE | 2019-08-29 11:21 | MHCR ---
DATE OF CONSULTATION: 08/27/2019 Consultation done via telepsychiatry on 08/27/2019. HISTORY OF PRESENT ILLNESS: I was asked to see this 29-year-old man who was brought to the emergency room by police because it was found that he was waving a machete around in what appeared to be a confused state. In the emergency room, the patient admitted to recent Gretchen use. The patient was a bit groggy, but he insisted that he had no intentions of hurting anybody or himself. The patient denied having any mood symptoms/problems. I did not elicit this patient having any psychotic symptoms either. PAST PSYCHIATRIC HISTORY: This patient has no history of any prior psychiatric treatment. He has never had any hospitalizations. He has no history of any suicidal attempts. FAMILY HISTORY: He denied any psychiatric illness in the family. MEDICAL HISTORY: The patient does have significant medical problems. Apparently, the patient had been admitted to [facility] on 08/08/2019 and found to have an abscess and discitis. He was transferred to [place] and then from there, he was transferred to a rehabilitation center and he left there against medical advice (AMA) on 08/21/2019. He is readmitted now for further medical treatment. SUBSTANCE ABUSE PROBLEMS: This patient has a significant history of abusing Gretchen and intravenous (IV) drug abuse of opiates. The patient does not seem to have much insight of this being a problem for him and has no interest in seeking treatment. MENTAL STATUS EXAMINATION: As I said, he did appear to be somewhat groggy but, with much encouragement, he would become alert and he did answer questions with short sentences, but his answers were appropriate. His eye contact was fair. There is no formal thought disorder noted. His mood is okay. Affect is flat. I did not elicit any psychotic symptoms. He denied suicidal, homicidal ideation. Concentration is fair. Memory appears to be grossly intact. Insight and judgment appear to be okay, except that he does not have much insight about his substance abuse. DIAGNOSES: Opioid use disorder, severe. Stimulant use disorder, severe (methamphetamine). TREATMENT RECOMMENDATION: At this point, the patient says that he has no suicidal, homicidal ideations. I am not eliciting any mood symptoms. He does have a significant problem with substance abuse, and I did recommend to the patient that he go ahead and go to treatment for addictions.
== END 2019-08-28 15:40 | disposition left against medical advice (07) | DRG 347 ==
LOC: M ED 07:54 → M ED INP 14:19 → ENRESERV 14:48 → M PCU 15:36
PROVIDERS: ADMIT Internal Medicine; ATTEND Internal Medicine
DX: M46.44 Discitis, unspecified, thoracic region (principal); R45.851 Suicidal ideations; F11.20 Opioid dependence, uncomplicated; F15.20 Other stimulant dependence, uncomplicated; R60.0 Localized edema; B18.2 Chronic viral hepatitis C; D64.9 Anemia, unspecified; R59.0 Localized enlarged lymph nodes; L53.0 Toxic erythema; Z79.899 Other long term (current) drug therapy

== ENCOUNTER 2019-09-13 08:54 | Inpatient (IN) | payer OTHER ==
[~2019-09-13] VITALS: Ht 185.4 cm; Wt 82.9 kg
[~2019-09-13 08:54] MED LIST: HYDR-3363 PO; LEVO750T13 PO; MAG400TA PO; VITMTA PO
[2019-09-13] MEDS ORDERED: MORPHINE 4 MG/ML 1ML VIAL/SYRINGE (J2270) IV ONE ×2 (09:45→12:15)
[2019-09-13] MEDS ORDERED: NS 2,490 ML in IV 1 EA IV ONE (09:45)
[2019-09-13 09:59] LABS: BASO % 0.3 % (0.0-1.0); EOS # 0.1 10^3/uL (0.0-0.5); EOS % 0.5 % (0.0-3.0); HEMATOCRIT 34.2 % (42.0-52.0); LYMPH # 1.8 10^3/uL (1.5-5.0); LYMPH % 15.2 % (24.0-44.0); MEAN CORPUSCULAR HEMOGLOBIN 27.9 pg (27.0-33.0); MEAN CORPUSCULAR HGB CONC 32.2 g/dl (32.0-36.5); MEAN CORPUSCULAR VOLUME 86.8 fl (80.0-96.0); MONO # 1.6 10^3/uL (0.0-0.8); MONO % 13.1 % (0.0-5.0); NEUTROPHILS # 8.3 10^3/uL (1.5-8.5); NEUTROPHILS % 70.5 % (36.0-66.0); PLATELET COUNT, AUTOMATED 252 10^3/uL (150-450); RED BLOOD COUNT 3.94 10^6/uL (4.30-6.10); WHITE BLOOD COUNT 11.8 10^3/uL (4.0-10.0)
[2019-09-13] MEDS ORDERED: VANCOMYCIN HCL 1,750 MG in D5W 250 ML IV ONE (10:00)
[2019-09-13] MEDS ORDERED: CEFEPIME HCL 2 GM in D5W MINI-BAG PLUS 50 ML IV ONE (10:00)
[2019-09-13 10:15] LABS: ALBUMIN 3.3 GM/DL (3.2-5.2); ALT/SGPT 39 U/L (12-78); BILIRUBIN,DIRECT 0.3 MG/DL (0.0-0.2); BILIRUBIN,TOTAL 0.6 MG/DL (0.2-1.0); BLOOD UREA NITROGEN 25 MG/DL (7-18); CALCIUM LEVEL 9.2 MG/DL (8.5-10.1); CARBON DIOXIDE LEVEL 29 MEQ/L (21-32); CHLORIDE LEVEL 94 MEQ/L (98-107); CK-MB VALUE MASS 1.8 NG/ML (<3.6); CPK CREATINE PHOSPHOKINASE 57 U/L (39-308); CREATININE FOR GFR 1.55 MG/DL (0.70-1.30); GLOMERULAR FILTRATION RATE 56.7 (>60); GLUCOSE, FASTING 126 MG/DL (70-100); LIPASE 51 U/L (73-393); MB/CK RELATIVE INDEX 3.16 (< OR =4); SODIUM LEVEL 131 MEQ/L (136-145); TROPONIN I < 0.02 NG/ML (< 0.10)
[2019-09-13] MEDS ORDERED: VANCOMYCIN HCL 1,000 MG, VIAL MATE ADAPTER 1 EACH in D5W 250 ML IV ONE (10:15)
[2019-09-13] MEDS ORDERED: VANCOMYCIN HCL 750 MG, VIAL MATE ADAPTER 1 EACH in D5W 250 ML IV ONE (10:15)
[2019-09-13 10:16] LABS: ERYTHROCYTE SEDIMENTATION RATE 92 mm/hr (0-15)
[2019-09-13] MEDS ORDERED: LORazepam 2 MG/ML VIAL IV STA (11:23)
[2019-09-13 11:38] LABS: BILIRUBIN, URINE MANUAL NEGATIVE (NEGATIVE); GLUCOSE, URINE (UA) MANUAL NEGATIVE (NEGATIVE); KETONE, URINE MANUAL NEGATIVE (NEGATIVE); UROBILINOGEN, URINE MANUAL 4 MG mg/dl (NORMAL)
[2019-09-13 11:45] LABS: SQUAMOUS EPITHELIAL CELL URINE SMALL AMOUNT /hpf (SMALL AMT)
[2019-09-13 11:46] LABS: AMORPHOUS SEDIMENT, URINE MOD AMOUNT (NEGATIVE); BACTERIA, URINE SMALL AMOUNT; MUCUS, URINE SMALL AMOUNT (NEGATIVE)
--- NOTE | 2019-09-13 12:25 | ECGEPIP ---
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
[2019-09-13] MEDS ORDERED: ACETAMINOPHEN TAB 650MG DOSE (2X325MG) PO PRN (15:00)
[2019-09-13] MEDS ORDERED: CEFEPIME HCL 2 GM in D5W MINI-BAG PLUS 50 ML IV SCH (15:00)
--- NOTE | 2019-09-13 15:16 | HPEPDOC ---
General Date of Admission 09/13/2019 Date of Service: Sep 13, 2019 Chief Complaint The patient is a 29-year-old male who presented to the hospital after experiencing back pain and wanted to get his life back together History of Present Illness Patient is a 29-year-old male with a PMHx of Substance abuse (with Intravenous Methamphetamines and Opiates), Hepatitis C, Anemia, who was recently found to have Osteomyelitis / Diskitis of T8-T9. Patient had originally presented to [facility] on 08/08/19 with complaints of back pain. Imaging completed via MRI head revealed evidence of phlegmon/abscess at the posterior aspect of T8/T9 extending to the right with narrowing of the right lateral recess and compression of the thecal sac. Patient was subsequently transferred to [facility] for further management. There, he received an IR guided biopsy on 08/09, which had revealed acute and chronic osteomyelitis. Orthopedic surgery was consult and had not recommended any surgery, but did recommended TLSO brace. An echocardiogram was performed and was negative for any evidence of endocarditis. Blood cultures were positive for Enterobacter cloacae. Infectious disease had recommended cefepime 2 g every 8 for total of 6 weeks duration, starting 08/11. Patient was ultimately discharged from [facility] and transferred to [facility] for drug rehabilitation on 08/12. Patient had ultimately left [facility] [place] on 08/20 because he had reported that his girlfriend had left him. Patient was again admitted to the hospital on 08/26 at [facility] for continued management of his discitis/osteomyelitis, after he was brought in for psychosis and possible suicidal/homicidal ideation when he was found with a machete. However, patient had subsequently left AGAINST MEDICAL ADVICE on 08/27 Patient is again at the hospital because he wants to get his life back together. Reports that he has had social issues that have made him feel AGAINST MEDICAL ADVICE including drug use and ensuring that his belongings arent stolen. Currently patient reports back pain reported as a 10/10, sharp, continuous with periods of worsening. Patient denies any fevers but does report chills. Patient does not experience any incontinence of urine and stool or experience any lower extremity weakness. Patient is able to ambulate and had walked to the emergency room. Denies any nausea, vomiting, constipation, diarrhea, or urinary discomfort.. He does report some left upper abdominal pain / left lower chest pain. Patient reports that at baseline to 1 or 2, and occurs intermittently with movement. Denies any shortness of breath, chest pain, diffusely, or shortness of breath/cough. Patient reports his appetite is poor and his weight fluctuates. Home Medications No Active Prescriptions or Reported Meds Allergies Coded Allergies: No Known Allergies (Unverified , 10/11/18) Past Medical History Medical History Substance abuse (with Intravenous Methamphetamines and Opiates), Hepatitis C, Anemia Surgical History Patient has not expense any prior surgeries; however, has a biopsy of his thoracic spine completed on 08/10/19 Family History - No history of malignancies Social History - Denies the use of alcohol or tobacco; patient reports he is an active drug user with IV amphetamines and heroin - Denies recent travel or sick contacts - Lives with alone / patient is homeless and lives in the [facility] - Occupation; unemployed Review of Systems Other systems 10 point review of systems complete, all negative otherwise stated in HPI Vital Signs - Vitals: BP 105/51, HR 89, RR 20, Sat 100%RA, Temp 100.0F - General: Lying in bed, Reports back pain, AAOx3 - HEENT: NC, AT, PERRLA, EOMI - CVS: RRR, +S1S2, No appreciable murmurs - Lungs: Fair air entry bilaterally, No appreciable wheezing / rales / rhonchi - Chest wall: Left lower chest with tenderness on palpation - Abdomen: Soft, Non-distended, Non-tender - Extremities: No lower extremity edema, No calf tenderness - Neuro: No focal motor or sensory deficit - Skin: No visible rashes Laboratory Data Labs 24H Laboratory Tests 2 09/13/19 09:34: Immature Granulocyte % (Auto) 0.4, Neutrophils (%) (Auto) 70.5H, Lymphocytes (%) (Auto) 15.2L, Monocytes (%) (Auto) 13.1H, Eosinophils (%) (Auto) 0.5, Basophils (%) (Auto) 0.3, Neutrophils # (Auto) 8.3, Lymphocytes # (Auto) 1.8, Monocytes # (Auto) 1.6H, Eosinophils # (Auto) 0.1, Basophils # (Auto) 0.0, Nucleated Red Blood Cells % (auto) 0.0, Erythrocyte Sedimentation Rate 92H, Anion Gap 8, Glomerular Filtration Rate 56.7L, Calcium Level 9.2, Total Bilirubin 0.6, Direct Bilirubin 0.3H, Aspartate Amino Transf (AST/SGOT) 18, Alanine Aminotransferase (ALT/SGPT) 39, Alkaline Phosphatase 113, Total Creatine Kinase 57, Creatine Kinase MB 1.8, Creatine Kinase MB Relative Index 3.16, Troponin I < 0.02, C- Reactive Protein, Quantitative 17.20H, Total Protein 8.0, Albumin 3.3, Albumin/Globulin Ratio 0.7, Lipase 51L 09/13/19 09:36: Lactic Acid Level 1.2 09/13/19 11:17: Urine Color (GONZALO) YELLOW, Urine Appearance (GONZALO) CLOUDYH, Urine pH (GONZALO) 5.0, Urine Specific [place] (GONZALO) 1.021, Urine Protein 2+H, Bedside Urine Glucose (UA) NEGATIVE, Bedside Urine Ketones (LAB) NEGATIVE, Bedside Urine Blood TRACEH, Bedside Urine Nitrite (LAB) NEGATIVE, Bedside Urine Bilirubin (LAB) NEGATIVE, Bedside Urine Urobilinogen (LAB) 4 [facility], Bedside Urine Leukocyte Esterase (L TRACEH, Urine Sediment Examination PERFORMED, Urine RBC 3-5H, Urine WBC 5-7H, Urine Squamous Epithelial Cells SMALL AMOUNT, Urine Amorphous Sediment MOD AMOUNTH, Urine Bacteria SMALL AMOUNTH, Urine Hyaline Casts 3-5H, Urine Granular Casts 1-3H, Urine Mucus SMALL AMOUNTH CBC/BMP Laboratory Tests 09/13/19 09:34 Microbiology Microbiology 09/13/19 Urine Culture, Received Pending 09/13/19 Blood Culture, Received Pending 09/13/19 Blood Culture, Received Pending Plan / VTE VTE Prophylaxis Ordered?: Yes Plan Plan Acute on Chronic osteomyelitis of T8/9 - 05/10 Enterobacter cloacae - likely 05/10 IV drug abuse - Patient presented to the hospital after leaving [facility] [place] on 08/27 - Patient has a recent diagnosis of osteomyelitis/discitis of T8-T9, diagnosed at [facility] via Biopsy - Initial culture results were positive for Enterobacter cloacae; recommendations at that time were cefepime 2g q8h - Patient is hemodynamically stable and afebrile - Currently patient does not have any focal neurologic deficits; no urinary incontinence or bowel incontinence - Leukocytosis, no lactic acidosis - Elevated ESR and CRP - MRI 09/12: Severely limited by motion artifact. Essentially unchanged from . Osteo/Diskitis at the T8/9 level with surrounding inflammatory changes and phlegmanous changes extending cranially towards T5/6 and caudally to T10/11. No definite abscess formation. - MRI findings were discussed between ER provider and orthopedic surgery, Dr. Alexandre; recommendations were no surgical intervention required at this time - Will check blood cultures, echocardiogram, MRSA screen Left lower chest tenderness - Patient reports that he experiences left lower chest pain upon movement - Denies any recent trauma - There is tenderness to palpation of left lower rib margin - Will check rib x-ray Acute kidney injury - Likely secondary to dehydration - Avoid nephrotoxic medications - Will check urine osmolality and urine electrolytes - Will continue with IV fluid hydration Hyponatremia - possibly 2/2 hypotonic hypovolemic etiology - Mild - Will continue with IV fluid hydration Substance abuse - Hx of Intravenous Methamphetamines and Opiates - HIV / Syphilis screen negative on 08/27 Hepatitis C - Liver function is within normal limits Anemia - Hg appears to be at similar level compared to early August - No evidence of bleeding - Will continue to monitor DVT prophylaxis - Will start Heparin SQ GARCIA JOHNSON MD Sep 13, 2019 15:16
[2019-09-13] MEDS: NS 1,000 ML IV SCH (16:32)
[2019-09-13] MEDS: MORPHINE 4 MG/ML 1ML VIAL/SYRINGE (J2270) IV PRN ×2 (16:33→21:33)
[2019-09-13 16:50] VITALS: BP 152/83
[2019-09-13 16:54] VITALS: BP 152/83
[2019-09-13] MEDS: CEFEPIME HCL 2 GM in D5W MINI-BAG PLUS 50 ML IV SCH (17:21)
[2019-09-13] MEDS: LORazepam 2 MG/ML VIAL IV PRN (17:21)
[2019-09-13 21:30] VITALS: BP 145/83
[2019-09-13] MEDS: HEPARIN SOD (PORCINE) 5000UNITS/ML VIAL (J1644 PER 1000UNITS) SC SCH (21:32)
[2019-09-13] MEDS: VANCOMYCIN HCL 1,000 MG, VIAL MATE ADAPTER 1 EACH in D5W 250 ML IV SCH (21:32)
[2019-09-14] MEDS: NS 1,000 ML IV SCH ×3 (02:12→20:15)
[2019-09-14] MEDS: MORPHINE 4 MG/ML 1ML VIAL/SYRINGE (J2270) IV PRN (02:12)
[2019-09-14] MEDS: CEFEPIME HCL 2 GM in D5W MINI-BAG PLUS 50 ML IV SCH ×3 (02:12→17:10)
[2019-09-14 04:15] VITALS: BP 145/83
[2019-09-14] MEDS: VANCOMYCIN HCL 1,000 MG, VIAL MATE ADAPTER 1 EACH in D5W 250 ML IV SCH ×2 (04:19→12:01)
[2019-09-14] MEDS: LORazepam 2 MG/ML VIAL IV PRN (04:19)
[2019-09-14] MEDS: HEPARIN SOD (PORCINE) 5000UNITS/ML VIAL (J1644 PER 1000UNITS) SC SCH ×3 (06:00→20:15)
--- NOTE | 2019-09-14 06:34 | ECHO ---
DATE OF STUDY: 09/13/2019 REFERRING PHYSICIAN: MARISABEL Aquino INDICATION: Sepsis. HEIGHT: 185 cm. WEIGHT: 83 kg. 2-D MEASUREMENTS: Aortic root: 3.7 cm Left atrium: 2.6 cm Ventricular septum: 1.02 cm Posterior wall: 0.99 cm Aortic annulus: 2.9 cm DOPPLER MEASUREMENTS: No aortic regurgitation No aortic stenosis Aortic valve velocity: 151 cm/sec LVOT velocity: 144 cm/sec LVOT VTI: 23.7 cm Mitral E velocity: 99.5 cm/sec Mitral E deceleration time: 176 ms No mitral regurgitation No mitral stenosis Trace tricuspid regurgitation No pulmonic regurgitation Pulmonary artery acceleration time: 120 ms MITRAL ANNULAR TISSUE DOPPLER: E prime septal: 12.4 cm/sec E prime lateral: 11.1 cm/sec DESCRIPTION: The rhythm was sinus. Image quality was excellent. This was a 2-D, M-mode, color flow Doppler and pulse wave Doppler examination and included mitral annular tissue Doppler. CONCLUSIONS: 1. Normal echocardiogram Doppler. 2. No vegetations seen on any of the cardiac valves. All of the cardiac valves were structurally and functionally normal. 3. Normal left ventricle internal dimensions and wall thickness. Normal regional LV wall motion and wall thickening. Normal LV systolic and diastolic function. LVEF 65% by visual estimate. The results of this study were communicated by telephone to the emergency room physician, Dr. Justin Freeman.
[2019-09-14 06:51] LABS: BASO % 0.4 % (0.0-1.0); EOS # 0.1 10^3/uL (0.0-0.5); EOS % 0.9 % (0.0-3.0); HEMATOCRIT 31.6 % (42.0-52.0); HEMOGLOBIN 10.5 g/dl (13.5-17.5); LYMPH # 1.3 10^3/uL (1.5-5.0); LYMPH % 13.6 % (24.0-44.0); MEAN CORPUSCULAR HEMOGLOBIN 27.9 pg (27.0-33.0); MEAN CORPUSCULAR HGB CONC 33.2 g/dl (32.0-36.5); MONO # 1.3 10^3/uL (0.0-0.8); NEUTROPHILS # 6.9 10^3/uL (1.5-8.5); NEUTROPHILS % 71.6 % (36.0-66.0); PLATELET COUNT, AUTOMATED 211 10^3/uL (150-450); RED BLOOD COUNT 3.76 10^6/uL (4.30-6.10); WHITE BLOOD COUNT 9.7 10^3/uL (4.0-10.0)
[2019-09-14 07:16] LABS: BLOOD UREA NITROGEN 10 MG/DL (7-18); CALCIUM LEVEL 8.5 MG/DL (8.5-10.1); CARBON DIOXIDE LEVEL 27 MEQ/L (21-32); CHLORIDE LEVEL 97 MEQ/L (98-107); CREATININE FOR GFR 0.64 MG/DL (0.70-1.30); GLOMERULAR FILTRATION RATE > 60.0 (>60); GLUCOSE, FASTING 111 MG/DL (70-100); MAGNESIUM LEVEL 1.6 MG/DL (1.8-2.4); SODIUM LEVEL 132 MEQ/L (136-145)
[2019-09-14] MEDS ORDERED: MAGNESIUM OXIDE 400 MG TAB (MAG-OX) PO ONE (08:00)
[2019-09-14 09:00] VITALS: BP 150/86
[2019-09-14 09:55] VITALS: BP 116/60
--- NOTE | 2019-09-14 12:23 | REP ---
TWO-VIEW CHEST: REASON FOR EXAM: Chest discomfort. COMPARISON: No priors. FINDINGS: The superior mediastinal structures are midline. The cardiac silhouette is unremarkable in size, shape, and position. The diaphragmatic surfaces of the lungs are regular, and the costophrenic angles are clear. The pulmonary carter are clear. The imaged osseous structures are intact. IMPRESSION: There is no acute cardiopulmonary disease. Preliminary report given by Dr. Rajput. Electronically Signed by Panda Solomon DO 09/14/2019 03:15 P
--- NOTE | 2019-09-14 13:14 | REP ---
REASON FOR EXAM: Chest wall tenderness bilaterally. Preliminary given by Dr. Rajput. Four views were obtained on both right and left sides. Not all of the ribs are included on all of the views. This limited examination shows no evidence of a fracture. Electronically Signed by Panda Solomon DO 09/14/2019 03:18 P
[2019-09-14 14:00] VITALS: BP 120/65
--- NOTE | 2019-09-14 16:08 | IPNPDOC ---
Date Seen The patient was seen on 09/14/19. Progress Note SUBJECTIVE: BCx x 2 sets growing Gram positive cocci in pairs, chains and clusters. Echo neg for vegetations, afebrile, WBC 9.7. Denies chest pain, n/v/d, fevers, chills, shortness of breath. OBJECTIVE: VITAL SIGNS: Please see below PHYSICAL EXAMINATION: CONSTITUTIONAL: No acute distress, resting comfortably, AAO x 3 but does not wish to communicate much EYES: PERRLA, EOM intact HENT, MOUTH: Normocephalic, atraumatic, moist mucous membranes NECK: SUPPLE, no JVD, no lymphadenopathy, no carotid bruit CV: Regular rate and rhythm, S1S2 normal, no murmurs/rubs/gallops RESPIRATORY: Clear to auscultation bilaterally, no rales/rhonchi/wheezes GI: BS positive in 4 quadrants, soft, nontender, nondistended, no rebound or guarding, no organomegaly : Deferred MUSCULOSKELETAL: Normal ROM. No cyanosis, clubbing, swelling, joint deformity, extremity edema INTEGUMENTARY: Multiple scabbed areas on upper and lower ext. Intact, no rashes, no erythema NEUROLOGIC: No focal deficits CURRENT MEDICATIONS: Please see below LABORATORY DATA: Please see below MICROBIOLOGY: 09/13/19 Urine Culture, Received and Pending 09/13/19 Blood Culture- Gram positive cocci in pairs, chains and clusters 09/13/19 Blood Culture- Gram positive cocci in pairs, chains and clusters IMAGING: Echo pending ASSESSMENT: 29 y/o PLAN: 1. Gram positive bacteremia likely 2/2 to IV drug use. - Echo showed no vegetations, afebrile, WBC wnl. - CXR neg - F/u UCx, sensitivities of BCx - C/w Vancomycin 1 gm Q8H - Daily labs - ID consulted to follow 2. 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 - Previously left AMA on 08/27 - Patient has a recent diagnosis of osteomyelitis/discitis of T8-T9, diagnosed at [facility] via Biopsy. Initial culture results were positive for Enterobacter cloacae; recommendations at that time were cefepime 2g q8h - Currently patient does not have any focal neurologic deficits; no urinary incontinence or bowel incontinence - WBC 9.7, elevated ESR and CRP - MRI 09/12: Severely limited by motion artifact. Essentially unchanged from 08/08/2019. Osteo/Diskitis at the T8/9 level with surrounding inflammatory changes and phlegmanous changes extending cranially towards T5/6 and caudally to T10/11. No definite abscess formation. - Orthopedic surgery, Dr. Alexandre; recommendations were no surgical intervention required at this time - C/w Cefepime 2 g Q8H - ID consulted to follow 4. Hypomagnesemia. - Replaced with 800 mg PO mag ox. F/u AM labs. 5. Hyponatremia possibly 2/2 hypotonic hypovolemic etiology. - F/u daily labs. - C/w IVFs. 6. Acute kidney injury likely 2/2 to dehydration. - Resolved, Cr now wnl. - Avoid nephrotoxic medications. - C/w IVFs as patient is not eating, drinking much. - Daily labs 7. Substance abuse with hx of IV Methamphetamines and Opiates. - Currently no signs/symptoms of withdrawl - HIV / Syphilis screen negative on 08/27 - Monitoring closely on telemetry. - Ativan PRN 8. Hepatitis C - Liver function is within normal limits - Unknown if patient has had treatment. 9. Normocytic anemia - H/H has been stable since early 2019 - No signs of acute bleeding - F/u iron, ferritin, TIBC - Daily CBC 10. DVT prophylaxis - Heparin SQ DISPOSITION: Currently under inpatient status. Patient is homeless so this complicates discharge with patient needing IV abx for 6-8 weeks for osteomyelitis. Discussions will need to take place about either staying in hospital vs. placement (which would be difficult due to his IV drug use, hx of leaving AMA). Will discuss with team. VS, I&O, 24H, Fishbone Vital Signs/I&O Vital Signs Date Time Temp Pulse Resp B/P (MAP) Pulse Ox O2 Delivery O2 Flow Rate FiO2 09/14/19 09:55 97.2 89 18 116/60 (78) 96 Room Air I&O- Last 24 Hours up to 6 AM 09/14/19 06:00 Intake Total 3980 ml Output Total 760 ml Balance 3220 ml Laboratory Data 24H LABS Laboratory Tests 2 09/13/19 16:57: Methicillin-Resist S.aureus DNA PCR DETECTEDA 09/14/19 06:36: Immature Granulocyte % (Auto) 0.5, Neutrophils (%) (Auto) 71.6H, Lymphocytes (%) (Auto) 13.6L, Monocytes (%) (Auto) 13.0H, Eosinophils (%) (Auto) 0.9, Basophils (%) (Auto) 0.4, Neutrophils # (Auto) 6.9, Lymphocytes # (Auto) 1.3L, Monocytes # (Auto) 1.3H, Eosinophils # (Auto) 0.1, Basophils # (Auto) 0.0, Nucleated Red Blood Cells % (auto) 0.0, Anion Gap 8, Glomerular Filtration Rate > 60.0, Calcium Level 8.5, Magnesium Level 1.6L CBC/BMP Laboratory Tests 09/14/19 06:36 Microbiology Microbiology 09/13/19 Urine Culture - Final, Complete 09/13/19 Blood Culture - Preliminary, Resulted 09/13/19 Blood Culture - Preliminary, Resulted Current Medications Current Medications Medications (Trade) Dose Ordered Sig/Aminata Route PRN Reason Start Time Stop Time Status Last Admin Dose Admin Acetaminophen (Tylenol Tab) 650 mg Q4H PRN PO PAIN OR FEVER 09/13/19 15:00 Cefepime HCl 2 gm/ Dextrose 50 ml @ 100 mls/hr Q12H IV 09/13/19 15:00 09/13/19 15:08 DC Cefepime HCl 2 gm/ Dextrose 50 ml @ 100 mls/hr Q8H IV 09/13/19 18:00 09/14/19 10:47 Heparin Sodium (Porcine) (Heparin) 5,000 units Q8H SC 09/13/19 22:00 Home Med (Med Rec Complete!) ASDIRECTED XX 09/13/19 10:45 09/13/19 10:45 DC Lorazepam (Ativan) 1 mg Q6HP PRN IV ANXIETY/AGITATION 09/13/19 17:15 09/14/19 04:19 Lorazepam (Ativan) 2 mg STAT STAT IV 09/13/19 11:23 09/13/19 11:24 DC 09/13/19 12:11 Morphine Sulfate (Morphine Sulfate Inj) 4 mg Q4HP PRN IV SEVERE PAIN (PS 8-10) 09/13/19 15:00 09/14/19 02:12 Sodium Chloride 1,000 ml @ 100 mls/hr Q10H IV 09/13/19 15:30 09/14/19 10:49 Vancomycin HCl 1000 mg/IV Miscellaneous Supplies 1 each/ Dextrose 270 ml @ 270 mls/hr Q8H IV 09/13/19 20:00 09/14/19 12:01 Allergies Coded Allergies: No Known Allergies (Unverified , 10/11/18) Rocio Pittman MD Sep 14, 2019 16:07
[2019-09-14] MEDS ORDERED: ISOVUE-370 76% 100ML VIAL As Ordered ONE (17:30)
--- NOTE | 2019-09-14 18:12 | REPVR ---
PROCEDURE INFORMATION: Exam: CT Chest With Contrast Exam date and time: 09/14/2019 5:50 PM Age: 29 years old Clinical indication: Chest pain; On breathing; Additional info: Fever pleuritic cchest pain ivdu TECHNIQUE: Imaging protocol: Computed tomography of the chest with intravenous contrast. 3D rendering: MIP and/or 3D reconstructed images were created by the technologist. Radiation optimization: All CT scans at this facility use at least one of these dose optimization techniques: automated exposure control; mA and/or kV adjustment per patient size (includes targeted exams where dose is matched to clinical indication); or iterative reconstruction. Contrast material: ISOVUE 370; Contrast volume: 100 ml; Contrast route: IV; COMPARISON: CR RIBS-BILAT W-O PA CHEST 09/13/2019 4:14 PM FINDINGS: Lungs: Bibasilar atelectasis. No acute pulmonary infiltrates demonstrated. Pleural space: Unremarkable. No pneumothorax. No pleural effusion. Heart: Unremarkable. No cardiomegaly. No pericardial effusion. Aorta: Unremarkable. No aortic aneurysm. Lymph nodes: Unremarkable. No enlarged lymph nodes. Spleen: There is mild splenomegaly with a maximum span of 14 centimeters. No focal abnormalities demonstrated. Bones/joints: Irregularity and widening of the disc space at T8 and T9 associated with marked thickening in the adjacent paraspinal soft tissues extending from T6 to T10 for 7.4 cm as measured superior to inferior. Findings consistent with infectious discitis. Osteomyelitis is not excluded. Soft tissues: Unremarkable. IMPRESSION: 1. Irregularity and widening of the disc space at T8 and T9 associated with marked thickening in the adjacent paraspinal soft tissues extending from T6 to T10 for 7.4 cm as measured superior to inferior. Findings consistent with infectious discitis. Osteomyelitis is not excluded. 2. There is mild splenomegaly with a maximum span of 14 centimeters. No focal abnormalities demonstrated. Electronically signed by: Ector Yates On 09/14/2019 18:11:52 PM
[2019-09-14] MEDS: KETOROLAC 30 MG/ML 1ML VIAL IV SCH (18:36)
[2019-09-14] MEDS ORDERED: VANCOMYCIN HCL 750 MG, VIAL MATE ADAPTER 1 EACH in D5W 250 ML IV ONE (20:00)
--- NOTE | 2019-09-14 20:46 | CR ---
DATE OF CONSULTATION: 09/14/2019 INFECTIOUS DISEASE CONSULTATION Asked to consult by hospitalist for evaluation of Gram-positive bacteremia and history of discitis of T8-T9 due to Enterobacter cloacae. HISTORY OF PRESENT ILLNESS: Joel is a 29-year-old gentleman who is known to have a history of vertebral osteomyelitis of T8-T9 with Enterobacter cloacae, diagnosed on August 08, 2019 at [facility]. The patient was transferred to [facility] where he had a biopsy under interventional radiology, which was positive for acute on chronic osteomyelitis with culture positive for Enterobacter cloacae. The patient was supposed to be treated with IV cefepime for 6 weeks, but he left against medical advice, the rehab center where he was in [facility]. He was supposed to continue with oral Levaquin, which he did not take over the past couple of weeks. The initial recommendation from infectious disease (ID) in [facility], was cefepime 2 grams every 8 hours for total of 6 weeks starting August 12, 2019. The patient came to our hospital also on August 27, 2019 for psychosis and IV drug use. He was found to have a machete. The patient left again against medical advice. This time he comes back with a complaint of severe back pain, continues using IV drugs, and has his two suitcases stating that he will remain here to get his life together and to get his IV antibiotics. He states he has a low grade fever with chills, worsening back pain 10 over 10, especially with a deep breath. He has a new pleuritic chest pain on the left side of the chest. He has no urinary or stool incontinence. No lower extremity weakness. He has no nausea, vomiting, diarrhea, constipation. ALLERGIES: He has no known drug allergies. MEDICATIONS: He was supposed to be on Levaquin, which he has not been taking. PAST MEDICAL HISTORY: Substance abuse, especially IV methamphetamines and opiates. Chronic hepatitis C. Vertebral osteomyelitis T8-T9 with Enterobacter cloacae. SURGICAL HISTORY: Interventional radiology (IR) biopsy of thoracic spine. FAMILY HISTORY: Not been revealing. SOCIAL HISTORY: He lives with a friend. He is on and off with his girlfriend. He is an IV drug user, active, with amphetamines and heroin. He is homeless. REVIEW OF SYSTEMS: No nausea, vomiting or diarrhea. No upper or lower extremity weakness. No headache or neck stiffness, mostly mid-thoracic back pain, pleuritic chest pain. LABORATORY DATA: White count yesterday was 18.8, today 9.7, hemoglobin 10.5, hematocrit 31.6, platelets 211, 72% neutrophils, 13% lymphocytes, 13% monocytes. ESR 92 up from 52 on August 28, 2019. Sodium 132, potassium 4, chloride 97, bicarbonate 27, BUN 10, creatinine 0.64, glucose 111. Osmolality 275, calcium 8.5, magnesium 1.6, CRP 17.2 up from 8.04 last admission. Blood cultures, two sets, are positive for gram-positive cocci in pairs, chains and clusters, two sets, one minute apart. Urine culture was negative. MRI of the thoracic spine showed persistent osteomyelitis of T8-T9 extending down to T11 caudally and T5-T6 cranially. On physical exam, he is a young gentleman in no acute distress, laying on his side. Temperature is 97.2, pulse 89, respirations 18, blood pressure 116/60, oxygen saturation (O2 sat) 96% on room air. Heart: Normal S1, S2. No murmurs, rubs or gallops. Lungs: Clear. No wheezes, rales or rhonchi. Abdomen: Soft, nontender. No hepatosplenomegaly. Back: No costovertebral angle (CVA) tenderness. He has lumbosacral tenderness, around T8, T9 and paraspinal tenderness most on the left side. Extremities: No clubbing, cyanosis or edema. No calf tenderness. Neurologic: Exam: Normal. Upper and lower extremity strength normal. Skin: Multiple tattoos. No rashes. He has a scarred up right antecubital vein where he injects IV drugs, but there is no evidence of abscesses of his skin suggesting a portal of entry. IMPRESSION: 29-year-old gentleman with previous history of T8-T9 vertebral discitis since diagnosed on August 08, 2019 with culture positive for Enterobacter cloacae, noncompliant, has not been taking his medication, now admitted with recurrent bacteremia with what sounds like a gram-positive coccus, possibly strep or staph aureus, persistent IV drug use, being treated with IV vancomycin. Echocardiogram, transthoracic, done on September 13, 2019, read by Dr. Joshi showed no evidence of endocarditis, no mitral regurgitation, no pulmonic regurgitation, no aortic stenosis. No vegetations are seen on the cardiac valves and ejection fraction is 65%. ALLERGIES: No known drug allergies. MEDICATIONS: - vancomycin 1 gram IV every 8 hours - cefepime 2 grams IV every 8 hours - lorazepam 1 mg IV every 6 hours as need for agitation - morphine 4 mg IV as needed for pain PLAN: Continue with current IV antibiotics, vancomycin and cefepime. Vancomycin to cover for gram-positive bacteremia and cefepime for Enterobacter aerogenes. Pending results of blood culture, will decide whether the patient needs a transesophageal echocardiogram. He will need IV cefepime for at least 4-6 weeks since he has had worsening thoracic discitis as he has not been compliant with his oral medication. He plans to remain for the course of treatment. History of drug abuse: Opiates and amphetamines; makes it very challenging case. He left against medical advice (AMA) twice before. Chronic hepatitis C. This will be addressed at a later date as an outpatient if patient complies with treatment.
[2019-09-14] MEDS ORDERED: VANCOMYCIN HCL 500 MG in D5W MINI-BAG PLUS 100 ML IV ONE (21:00)
[2019-09-14 22:00] VITALS: BP 114/58
--- NOTE | 2019-09-15 00:31 | REP ---
MRI THORACIC SPINE: 09/13/2019: INDICATION: Thoracic pain. TECHNIQUE: Multiplanar short and long TR sequences of the thoracic spine were obtained, including post gadolinium images. COMPARISON: 08/08/2019 FINDINGS: Image quality of the study is significantly degraded by patient motion. Sequelae of discitis/osteomyelitis at the level of T8/T9 have essentially remained stable with adjacent soft tissue inflammatory changes and likely phlegmon. No drainable abscess has developed. Vertebral body height at T8 as well as T9 is essentially stable. No abnormal cord signal is detected. There is no evidence of fluid collection within the spinal canal. IMPRESSION: Image quality significantly degraded by patient motion. No significant changes detected compared to last month. MTDD
[2019-09-15] MEDS: CEFEPIME HCL 2 GM in D5W MINI-BAG PLUS 50 ML IV SCH ×3 (02:21→19:50)
[2019-09-15] MEDS: KETOROLAC 30 MG/ML 1ML VIAL IV SCH ×3 (02:22→20:34)
[2019-09-15 06:00] VITALS: BP 116/59
[2019-09-15] MEDS: HEPARIN SOD (PORCINE) 5000UNITS/ML VIAL (J1644 PER 1000UNITS) SC SCH ×3 (06:00→19:52)
[2019-09-15 06:16] LABS: BASO # 0.1 10^3/uL (0.0-0.2); BASO % 0.7 % (0.0-1.0); EOS # 0.1 10^3/uL (0.0-0.5); EOS % 1.9 % (0.0-3.0); HEMATOCRIT 32.5 % (42.0-52.0); HEMOGLOBIN 10.9 g/dl (13.5-17.5); LYMPH # 1.6 10^3/uL (1.5-5.0); LYMPH % 23.9 % (24.0-44.0); MEAN CORPUSCULAR HEMOGLOBIN 28.3 pg (27.0-33.0); MEAN CORPUSCULAR HGB CONC 33.5 g/dl (32.0-36.5); MEAN CORPUSCULAR VOLUME 84.4 fl (80.0-96.0); MONO % 14.4 % (0.0-5.0); NEUTROPHILS % 58.2 % (36.0-66.0); PLATELET COUNT, AUTOMATED 239 10^3/uL (150-450); RED BLOOD COUNT 3.85 10^6/uL (4.30-6.10); WHITE BLOOD COUNT 6.9 10^3/uL (4.0-10.0)
[2019-09-15 06:40] LABS: BLOOD UREA NITROGEN 14 MG/DL (7-18); CALCIUM LEVEL 8.2 MG/DL (8.5-10.1); CARBON DIOXIDE LEVEL 28 MEQ/L (21-32); CHLORIDE LEVEL 103 MEQ/L (98-107); CREATININE FOR GFR 0.56 MG/DL (0.70-1.30); FERRITIN 337 NG/ML (26-388); GLOMERULAR FILTRATION RATE > 60.0 (>60); GLUCOSE, FASTING 99 MG/DL (70-100); IRON (FE) 27 UG/DL (65-175); MAGNESIUM LEVEL 1.9 MG/DL (1.8-2.4); PERCENT SATURATION 12.1 % (19.7-50.0); POTASSIUM SERUM 4.3 MEQ/L (3.5-5.1); SODIUM LEVEL 137 MEQ/L (136-145); TOTAL IRON BINDING CAPACITY 223 UG/DL (250-450)
[2019-09-15] MEDS ORDERED: VANCOMYCIN HCL 1,000 MG, VIAL MATE ADAPTER 1 EACH in D5W 250 ML IV SCH (08:45)
[2019-09-15] MEDS ORDERED: VANCOMYCIN HCL 1,000 MG, VIAL MATE ADAPTER 1 EACH in D5W 250 ML IV ONE (09:15)
[2019-09-15 09:36] LABS: VANCOMYCIN RANDOM 6.8 UG/ML
[2019-09-15] MEDS: NS 1,000 ML IV SCH ×2 (09:44→17:30)
[2019-09-15] MEDS: VANCOMYCIN HCL 500 MG in D5W MINI-BAG PLUS 100 ML IV SCH ×2 (10:51→18:44)
[2019-09-15 14:00] VITALS: BP 139/73
--- NOTE | 2019-09-15 15:44 | IPNPDOC ---
Text Note Date of Service The patient was seen on 09/15/19. NOTE SUBJECTIVE: -HDS, afebrile -Denies chest pain, n/v/d, fevers, chills, shortness of breath. -BCx x 2 sets growing Staph, however vanc had been dc'd despite MRSA PCR screen+. OBJECTIVE: VITALS: HDS, afebrile GENERAL: NAD EYES: PERRLA, EOMI, anicteric HENT, MOUTH: NCAT, MMM NECK: SUPPLE, no JVD CV: Regular rate and rhythm, S1S2 normal, no murmurs/rubs/gallops RESPIRATORY: Clear to auscultation bilaterally, no rales/rhonchi/wheezes GI: Normoactive, soft, nontender, nondistended, no rebound or guarding, no organomegaly EXT: No swelling, no edema, WWP SKIN: Scattered scabs on upper and lower ext. has multiple tattooes. Otherwise without draining or open lesions, no rashes, no erythema NEUROLOGIC: No focal deficits CURRENT MEDICATIONS: Please see below LABORATORY DATA: Reviewed. WBC 6.9 Hgb 10.9 platelets 239 na 137 K 4.3 Cr 0.56 Ferritin 337 Fe 27 %sat 12.1 TIBC 223 MICROBIOLOGY: 09/13/19 Urine Culture, negative 09/13/19 Blood Culture- Staph, sensitivities pending 09/13/19 Blood Culture- Staph, sensitivities pending IMAGING: TTE without evidence of vegetations ASSESSMENT: 29 yo M IVDU with known enterobacter OM, now found to have staph bacteremia. PLAN: 1. Staph bacteremia likely 2/2 to IV drug use. - TTE showed no vegetations, afebrile, WBC wnl. - CXR neg - 09/12 BCx growing staph x 2, staph species and sensitivities pending - F/u UCx negative - Restart Vancomycin @ 1250 mg Q8H - just chantelle 09/14 BCx - ID consulted, appreciate recs 2. 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 - Previously left AMA on 08/27 - Patient has a recent diagnosis of osteomyelitis/discitis of T8-T9, diagnosed at [facility]. - Initial culture results were positive for Enterobacter cloacae; recommendations at that time were cefepime 2g q8h - Currently patient does not have any focal neurologic deficits; no urinary incontinence or bowel incontinence - with elevated ESR and CRP and 6/ MRI showing Osteo/Diskitis at the T8/9 level with surrounding inflammatory changes and phlegmanous changes extending cran ially towards T5/6 and caudally to T10/11. No definite abscess formation. - Orthopedic surgery was consulted and Dr. Alexandre recommended no surgical intervention at this time - ID consulted also consulted and recommended to continue cefepine 2gQ8H which he will need for 6 weeks 4. Hypomagnesemia: resolved with repletion - monitor 5. Hyponatremia 2/2 hypotonic hypovolemia, resolved -s/p IVF 6. Acute kidney injury 2/2 to dehydration. Resolved with hydration - Avoid nephrotoxic medications. - Daily BMP 7. Substance abuse with hx of IV Methamphetamines and Opiates. - Currently no signs/symptoms of withdrawal - HIV / Syphilis screen negative on 08/27 - Ativan PRN 8. Hepatitis C - Liver function is within normal limits - Unknown if patient has had treatment. Will discuss with Dr. Rodas 9. Normocytic anemia - H/H has been stable since early 2019 - No signs of acute bleeding - studies c/w AOCI with known osteomyelitis and elevated inflammatory markers - Daily CBC 10. DVT prophylaxis - Heparin SQ DISPOSITION: Currently under inpatient status. Patient is homeless so this complicates discharge with patient needing IV abx for 6-8 weeks for osteomyelitis. Discussions will need to take place about either staying in hospital vs. placement (which would be difficult due to his IV drug use, hx of leaving AMA). Will discuss with team. VS,Fishbone, I+O VS, Fishbone, I+O Laboratory Tests 09/15/19 05:56 Vital Signs Date Time Temp Pulse Resp B/P (MAP) Pulse Ox O2 Delivery O2 Flow Rate FiO2 09/15/19 06:00 98.3 74 18 116/59 (78) 95 Room Air I&O- Last 24 Hours up to 6 AM 09/15/19 06:00 Intake Total 4190 ml Output Total 3125 ml Balance 1065 ml CORI WARD MD Sep 15, 2019 09:05
[2019-09-15] MEDS: VANCOMYCIN HCL 750 MG, VIAL MATE ADAPTER 1 EACH in D5W 250 ML IV SCH (17:44)
[2019-09-15] MEDS: RAMELTEON 8 MG TAB (ROZEREM) PO SCH (20:35)
[2019-09-15 22:00] VITALS: BP 147/77
[2019-09-16] MEDS: MORPHINE 4 MG/ML 1ML VIAL/SYRINGE (J2270) IV PRN ×2 (00:14→05:35)
[2019-09-16] MEDS: NS 1,000 ML IV SCH ×3 (01:01→23:53)
[2019-09-16] MEDS: VANCOMYCIN HCL 750 MG, VIAL MATE ADAPTER 1 EACH in D5W 250 ML IV SCH (01:56)
[2019-09-16] MEDS: VANCOMYCIN HCL 500 MG in D5W MINI-BAG PLUS 100 ML IV SCH (03:09)
[2019-09-16] MEDS: CEFEPIME HCL 2 GM in D5W MINI-BAG PLUS 50 ML IV SCH ×3 (04:19→19:28)
[2019-09-16] MEDS: HEPARIN SOD (PORCINE) 5000UNITS/ML VIAL (J1644 PER 1000UNITS) SC SCH ×3 (04:19→21:27)
[2019-09-16] MEDS: KETOROLAC 30 MG/ML 1ML VIAL IV SCH ×3 (04:50→21:00)
--- NOTE | 2019-09-16 05:48 | IPN ---
DATE: 09/15/2019 Mr. Peña is doing well. He was sleepy this afternoon when I visited him but had no complaints. He has been afebrile. He has some midthoracic back pain but otherwise doing well. LABORATORY DATA: White count of 6.9, hemoglobin 10.9, hematocrit 32.5, platelets 239, 58% neutrophils, 24% lymphocytes, 14% monocytes. ESR 92. Sodium 137, potassium 4.3, chloride 103, bicarbonate 23, BUN 14, creatinine 0.56, glucose 99, calcium 8.2, magnesium 1.9. Iron 27, TIBC 223, iron saturation 12%, ferritin 337. Blood cultures are positive for Staphylococcus aureus, two sets. Identification pending. Urine culture is negative. Blood culture from September 14 is pending. PHYSICAL EXAMINATION: HEART: Normal S1, S2. No murmurs, rubs, or gallops. LUNGS: Clear. No wheezes, rales, or rhonchi. ABDOMEN: Soft, nontender. No hepatosplenomegaly. BACK: Midthoracic tenderness around T8, T9, T10. EXTREMITIES: No clubbing, cyanosis, or edema. No calf tenderness. Multiple tattoos. IMPRESSION: 1. Discitis, T8-T9, with Enterobacter aerogenes, on intravenous (IV) cefepime. 2. Staphylococcus aureus bacteremia. Identification and susceptibility of pathogen is not available yet but suspect probably methicillin-resistant Staphylococcus aureus (MRSA). The patient had a transthoracic echocardiogram, which was negative. He will need a transesophageal echocardiogram (GEOVANNA). 3. Pleuritic chest pain. A chest CT done on 09/14/2019 showed irregularity with widening of disc space at T8-9 with thickening in the adjacent paraspinal soft tissue and T6-10, about 7.4 cm superior to inferiorly, consistent with discitis. There is mild splenomegaly, but there is no pulmonary infiltrate septic emboli. 4. Thoracic MRI was reviewed and showed significant degraded images due patient motion. No significant changes detected compared to last one done on August 07. There is no drainable abscess. There is T8-9 abnormal soft tissue inflammatory changes and phlegmon, consistent with discitis/osteomyelitis.. PLAN: Schedule transesophageal echocardiogram for Saturday to rule out right-sided versus left-sided endocarditis as a cause of Staphylococcus aureus bacteremia. Continue cefepime for discitis due to Enterobacter aerogenes. Continue vancomycin for Staphylococcus aureus bacteremia. Consult cardiology for GEOVANNA on or Saturday. The patient will need to remain here for a total of 6 weeks or at a rehabilitation facility for IV antibiotics.
[2019-09-16 06:00] VITALS: BP 132/75
[2019-09-16 08:01] LABS: BASO # 0.1 10^3/uL (0.0-0.2); BASO % 0.7 % (0.0-1.0); EOS # 0.2 10^3/uL (0.0-0.5); EOS % 2.5 % (0.0-3.0); HEMATOCRIT 31.8 % (42.0-52.0); HEMOGLOBIN 10.5 g/dl (13.5-17.5); LYMPH # 1.9 10^3/uL (1.5-5.0); LYMPH % 21.1 % (24.0-44.0); MEAN CORPUSCULAR HEMOGLOBIN 28.1 pg (27.0-33.0); MONO # 0.8 10^3/uL (0.0-0.8); MONO % 8.8 % (0.0-5.0); NEUTROPHILS # 5.9 10^3/uL (1.5-8.5); NEUTROPHILS % 65.9 % (36.0-66.0); PLATELET COUNT, AUTOMATED 251 10^3/uL (150-450); RED BLOOD COUNT 3.74 10^6/uL (4.30-6.10); WHITE BLOOD COUNT 8.9 10^3/uL (4.0-10.0)
[2019-09-16 08:24] LABS: BLOOD UREA NITROGEN 11 MG/DL (7-18); C REACTIVE PROTEIN QUANTITATIV 5.27 MG/DL (0.00-0.30); CALCIUM LEVEL 8.5 MG/DL (8.5-10.1); CARBON DIOXIDE LEVEL 27 MEQ/L (21-32); CHLORIDE LEVEL 107 MEQ/L (98-107); CREATININE FOR GFR 0.52 MG/DL (0.70-1.30); GLOMERULAR FILTRATION RATE > 60.0 (>60); GLUCOSE, FASTING 102 MG/DL (70-100); MAGNESIUM LEVEL 1.7 MG/DL (1.8-2.4); POTASSIUM SERUM 4.1 MEQ/L (3.5-5.1); SODIUM LEVEL 140 MEQ/L (136-145)
[2019-09-16 08:43] LABS: ERYTHROCYTE SEDIMENTATION RATE 75 mm/hr (0-15)
[2019-09-16] MEDS ORDERED: MAGNESIUM OXIDE 400 MG TAB (MAG-OX) PO ONE (08:45)
[2019-09-16 14:00] VITALS: BP 115/74
--- NOTE | 2019-09-16 15:53 | IPNPDOC ---
Text Note Date of Service The patient was seen on 09/16/19. NOTE SUBJECTIVE: -HDS, afebrile -Denies chest pain, n/v/d, fevers, chills, shortness of breath. -BCx grew MSSA OBJECTIVE: VITALS: HDS, afebrile GENERAL: NAD EYES: PERRLA, EOMI, anicteric HENT, MOUTH: NCAT, MMM NECK: SUPPLE, no JVD CV: Regular rate and rhythm, S1S2 normal, no murmurs/rubs/gallops RESPIRATORY: Clear to auscultation bilaterally, no rales/rhonchi/wheezes GI: Normoactive, soft, nontender, nondistended, no rebound or guarding, no organomegaly EXT: No swelling, no edema, WWP SKIN: Scattered scabs on upper and lower ext. Multiple tattoos. Otherwise without open lesions, no rashes, no erythema NEUROLOGIC: No focal deficits CURRENT MEDICATIONS: Please see below LABORATORY DATA: Reviewed. WBC 8.9 Hgb 10.5 K 4.1 Cr 0.52 MICROBIOLOGY: 09/14 BCx NGTD 09/13/19 Blood Culture- Staph, MSSA 09/13/19 Blood Culture- Staph, MSSA IMAGING: TTE without evidence of vegetations ASSESSMENT: 29 yo M IVDU with known enterobacter OM, now found to have MSSA bacteremia. PLAN: 1. MSSA bacteremia likely 2/2 to IV drug use. - TTE showed no vegetations, afebrile, WBC wnl. - Ordered GEOVANNA, scheduled for this evening at 5PM - CXR was wnl - 09/12 BCx grew MSSA x 2 - UCx negative - Dc'd Vancomycin given MSSA bacteremia - 09/14 BCx NGTD - ID consulted, appreciate recs, will need to stay here for the entire 6 weeks of IV abx treatment - Already on cefepime for Enterobacter OM which will cover MSSA 2. 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 - Previously left AMA on 08/27 - Patient has a recent diagnosis of osteomyelitis/discitis of T8-T9, diagnosed at [facility] s/p [facility]. - Initial culture results were positive for Enterobacter cloacae; recommendations at that time were cefepime 2g q8h - Currently patient does not have any focal neurologic deficits; no urinary incontinence or bowel incontinence - with elevated ESR and CRP and 6/7 MRI showing Osteo/Diskitis at the T8/9 level with surrounding inflammatory changes and phlegmanous changes extending cranially towards T5/6 and caudally to T10/11. No definite abscess formation. - Orthopedic surgery was consulted and Dr. Alexandre recommended no surgical intervention at this time - ID consulted also consulted and recommended to continue cefepime 2gQ8H which he will need for 6 weeks 4. Hypomagnesemia: resolved with repletion - monitor 5. Hyponatremia 2/2 hypotonic hypovolemia, resolved -s/p IVF 6. Acute kidney injury 2/2 to dehydration. Resolved with hydration - Avoid nephrotoxic medications. - Daily BMP 7. Substance abuse with hx of IV Methamphetamines and Opiates. - Currently no signs/symptoms of withdrawal - HIV / Syphilis screen negative on 08/27 - Ativan PRN 8. Hepatitis C - Liver function is within normal limits - Unknown if patient has had treatment. Will discuss with Dr. Rodas, not an acute care issue for this admission 9. Normocytic anemia - H/H has been stable since early 2019 - No signs of acute bleeding - studies c/w AOCI with known osteomyelitis and elevated inflammatory markers - Daily CBC 10. DVT prophylaxis - Heparin SQ DISPOSITION: Currently under inpatient status. Patient is homeless so this complicates discharge with patient needing IV abx for 6-8 weeks for osteomyelitis. Will need to stay inpatient for the duration of his antibiotic therapy. VS,Fishbone, I+O VS, Fishbone, I+O Laboratory Tests 09/16/19 07:42 Vital Signs Date Time Temp Pulse Resp B/P (MAP) Pulse Ox O2 Delivery O2 Flow Rate FiO2 09/16/19 06:00 98.7 70 18 132/75 (94) 94 Room Air I&O- Last 24 Hours up to 6 AM 09/16/19 06:00 Intake Total 6925 ml Output Total 4400 ml Balance 2525 ml CORI WARD MD Sep 16, 2019 08:51
[2019-09-16] MEDS ORDERED: LIDOCAINE VISCOUS 2% SOLN 15ML UDC As Ordered ONE (22:53)
[2019-09-16] MEDS ORDERED: propofoL 200 MG/20 ML VIAL As Ordered ONE (23:05)
[2019-09-16] MEDS ORDERED: LR 1,000 ML IV SCH (23:30)
[2019-09-16] MEDS ORDERED: fentaNYL 100 MCG/2 ML INJECTION (J3010) IV PRN (23:30)
[2019-09-16 23:47] VITALS: BP 130/86
[2019-09-16] MEDS: RAMELTEON 8 MG TAB (ROZEREM) PO SCH (23:53)
[2019-09-17] VITALS (11 sets, daily range): BP systolic 105–141; BP diastolic 47–75
[2019-09-17] MEDS: CEFEPIME HCL 2 GM in D5W MINI-BAG PLUS 50 ML IV SCH ×3 (03:03→19:40)
[2019-09-17] MEDS: HEPARIN SOD (PORCINE) 5000UNITS/ML VIAL (J1644 PER 1000UNITS) SC SCH ×3 (04:22→21:05)
[2019-09-17] MEDS: KETOROLAC 30 MG/ML 1ML VIAL IV SCH ×3 (04:22→20:56)
--- NOTE | 2019-09-17 08:51 | T-ECHO ---
DATE OF STUDY: 09/16/2019 REFERRING PHYSICIAN: Dr. Felix INDICATION: Infective endocarditis. PREPROCEDURE DIAGNOSIS: Infective endocarditis. POSTPROCEDURE DIAGNOSIS: Small pericardial effusion. No vegetations. FINDINGS: Small pericardial effusion. No vegetations. PROCEDURE PERFORMED: Transesophageal echocardiogram. PROCEDURE PERFORMED BY: Wan Joshi MD PRODUCTION COUNTER: None. IV SEDATION: Monitored anesthetic care/propofol IV per DISTRICT LEADER. COMPLICATIONS: None. PROCEDURE DESCRIPTION: The rhythm was sinus. The patient received viscous lidocaine 4% to gargle and swallow. He then received propofol IV per DISTRICT LEADER. Esophageal intubation using a 3D Galindo transesophageal echocardiogram probe was performed by Dr. Joshi. The left and right ventricles appeared normal in size and systolic function and without regional wall motion abnormalities. The left ventricle ejection fraction was 60-65% by visual estimate. Atria appeared normal. No mass or thrombi were seen within the atria or their appendages. Atrial septum appeared intact anatomically and by color flow Doppler. No vegetations were seen on any of the cardiac valves. Aortic valve was 3-cuspid and was structurally and functionally normal. Mitral leaflets were structurally and functionally normal with very mild mitral regurgitation within normal limits. The tricuspid and pulmonic valves were normal and without reurgitation. A small pericardial effusion was seen near the left ventricle apex. No diastolic chamber collapse. The distal aortic arch and descending thoracic aorta were normal. CONCLUSIONS: 1. Small pericardial effusion, no diastolic chamber collapse. 2. Structurally and functionally normal cardiac valves. 3. No vegetations. 4. Normal left and right ventricle size and systolic function. 5. Otherwise normal transesophageal echocardiogram Doppler findings. 6. Normal pulse wave Doppler flow pattern in the left upper pulmonary vein.
[2019-09-17 10:00] LABS: BASO # 0.1 10^3/uL (0.0-0.2); BASO % 0.9 % (0.0-1.0); EOS # 0.3 10^3/uL (0.0-0.5); EOS % 2.4 % (0.0-3.0); HEMATOCRIT 34.7 % (42.0-52.0); HEMOGLOBIN 11.2 g/dl (13.5-17.5); LYMPH # 2.1 10^3/uL (1.5-5.0); LYMPH % 17.9 % (24.0-44.0); MEAN CORPUSCULAR HEMOGLOBIN 27.5 pg (27.0-33.0); MEAN CORPUSCULAR HGB CONC 32.3 g/dl (32.0-36.5); MONO # 0.8 10^3/uL (0.0-0.8); MONO % 6.5 % (0.0-5.0); NEUTROPHILS # 8.3 10^3/uL (1.5-8.5); NEUTROPHILS % 71.2 % (36.0-66.0); PLATELET COUNT, AUTOMATED 324 10^3/uL (150-450); RED BLOOD COUNT 4.08 10^6/uL (4.30-6.10); WHITE BLOOD COUNT 11.6 10^3/uL (4.0-10.0)
[2019-09-17 10:21] LABS: BLOOD UREA NITROGEN 16 MG/DL (7-18); CALCIUM LEVEL 8.3 MG/DL (8.5-10.1); CARBON DIOXIDE LEVEL 26 MEQ/L (21-32); CHLORIDE LEVEL 106 MEQ/L (98-107); CREATININE FOR GFR 0.62 MG/DL (0.70-1.30); GLOMERULAR FILTRATION RATE > 60.0 (>60); GLUCOSE, FASTING 137 MG/DL (70-100); MAGNESIUM LEVEL 1.7 MG/DL (1.8-2.4); POTASSIUM SERUM 3.8 MEQ/L (3.5-5.1); SODIUM LEVEL 138 MEQ/L (136-145)
[2019-09-17] MEDS: NS 1,000 ML IV SCH ×2 (11:42→18:49)
[2019-09-17] MEDS ORDERED: MAGNESIUM OXIDE 400 MG TAB (MAG-OX) PO ONE (17:15)
[2019-09-17] MEDS ORDERED: VANCOMYCIN HCL 1,000 MG, VIAL MATE ADAPTER 1 EACH in D5W 250 ML IV SCH (17:30)
--- NOTE | 2019-09-17 17:30 | IPNPDOC ---
Text Note Date of Service The patient was seen on 09/17/19. NOTE SUBJECTIVE: -HDS, afebrile -Denies chest pain, n/v/d, fevers, chills, shortness of breath. -/ BCx grew MSSA + E.fecalis (1 of 2 bottles) -Has GEOVANNA, tolerated it well, no vegetations were visualized OBJECTIVE: VITALS: HDS, afebrile GENERAL: NAD EYES: PERRLA, EOMI, anicteric HENT, MOUTH: NCAT, MMM NECK: SUPPLE, no JVD CV: Regular rate and rhythm, S1S2 normal, no murmurs/rubs/gallops RESPIRATORY: Clear to auscultation bilaterally, no rales/rhonchi/wheezes GI: Normoactive, soft, nontender, nondistended, no rebound or guarding, no organomegaly EXT: No swelling, no edema, WWP SKIN: Scattered scabs on upper and lower ext. Multiple tattoos. Otherwise without open lesions, no rashes, no erythema NEUROLOGIC: No focal deficits CURRENT MEDICATIONS: Please see below LABORATORY DATA: Reviewed. WBC 11.6 Hgb 11.2 K 3.8 Cr 0.62 MICROBIOLOGY: 09/14 BCx NGTD 09/13/19 Blood Culture- Staph, MSSA 09/13/19 Blood Culture- Staph, MSSA, E.fecalis IMAGING: TTE without evidence of vegetations GEOVANNA without evidence of vegetations ASSESSMENT: 29 yo M IVDU with known enterobacter OM, now found to have MSSA and E.fecalis bacteremia. PLAN: 1. MSSA and E fecalis bacteremia likely 2/2 to IV drug use. - GEOVANNA showed no vegetations - CXR was wnl - 09/12 BCx grew MSSA x 2, and one of the cultures grew E.fecalis - UCx was negative - Dc'd Vancomycin given MSSA bacteremia, continued cefepime - 09/14 BCx NGTD - ID consulted, appreciate recs, will need to stay here for the entire 6 weeks o f IV abx treatment - Already on cefepime for Enterobacter OM which will cover MSSA. Will add back vanc for E.fecalis now growing in 09/12 BCx 2. Acute on chronic osteomyelitis of T8/ 2/2 Enterobacter cloacae - likely 2/2 IV drug abuse. - Previously left AMA on 08/27 - Patient has a recent diagnosis of osteomyelitis/discitis of T8-T9, diagnosed at [facility] s/p biopsy. - Initial culture results were positive for Enterobacter cloacae; recommendations at that time were cefepime 2g q8h - Currently patient does not have any focal neurologic deficits; no urinary incontinence or bowel incontinence - with elevated ESR and CRP and / MRI showing Osteo/Diskitis at the T8/9 level with surrounding inflammatory changes and phlegmanous changes extending cranially towards T5/6 and caudally to T10/11. No definite abscess formation. - Orthopedic surgery was consulted and Dr. Alexandre recommended no surgical intervention at this time - ID consulted also consulted and recommended to continue cefepime 2gQ8H which he will need for 6 weeks 4. Hypomagnesemia: resolved with repletion - monitor 5. Hyponatremia 2/2 hypotonic hypovolemia, resolved -s/p IVF 6. Acute kidney injury 2/2 to dehydration. Resolved with hydration - Avoid nephrotoxic medications. - Daily BMP 7. Substance abuse with hx of IV Methamphetamines and Opiates. - Currently no signs/symptoms of withdrawal - HIV / Syphilis screen negative on 08/27 - Ativan PRN 8. Hepatitis C - Liver function is within normal limits - Unknown if patient has had treatment. Will discuss with Dr. Rodas, not an acute care issue for this admission 9. Normocytic anemia - H/H has been stable since early 2019 - No signs of acute bleeding - studies c/w AOCI with known osteomyelitis and elevated inflammatory markers - Daily CBC 10. DVT prophylaxis - Heparin SQ DISPOSITION: Currently under inpatient status. Patient is homeless so this complicates discharge with patient needing IV abx for 6-8 weeks for osteomyelitis. Will need to stay inpatient for the duration of his antibiotic therapy. VS,Fishbone, I+O VS, Fishbone, I+O Laboratory Tests 09/17/19 09:46 Vital Signs Date Time Temp Pulse Resp B/P (MAP) Pulse Ox O2 Delivery O2 Flow Rate FiO2 09/17/19 14:00 97.9 65 17 117/57 (77) 98 Room Air I&O- Last 24 Hours up to 6 AM 09/17/19 05:59 Intake Total 4215 ml Output Total 1825 ml Balance 2390 ml CORI WARD MD 11, 2020 17:30
--- NOTE | 2019-09-17 20:42 | IPN ---
DATE: 09/17/2019 Joel is doing much better. He is alert, awake and discussing his previous history with me. He states he got very scared this time, was having severe back pain and was worried about being paralyzed. His girlfriend, Madina Jeff, also has hepatitis C and had an abscess that needed to be drained in her right forearm. He has had no fever or chills for the past three days. Temperature is 98.1, pulse 72, respirations 18, blood pressure 141/75, oxygen saturation (O2 sat) 100% on room air. Heart: Normal, S1, S2. No murmurs, rubs or gallops. Lungs are clear. No wheezes, rales or rhonchi. Abdomen: Soft, nontender. No hepatosplenomegaly. Back: Mid-thoracic tenderness, mild. Extremities: No clubbing, cyanosis or edema. LABORATORY DATA: White count 11.6, hemoglobin 11.2, hematocrit 34.7, platelets 324, 71% neutrophils, 18% lymphocytes, 7% monocytes. Sodium 138, potassium 3.8, chloride 106, bicarbonate 26, BUN 16, creatinine 0.62, glucose 137, calcium 8.3, magnesium 1.7, CRP 5.27 down from 17.2. Blood cultures on 09/13/2019: One set had methicillin-sensitive Staphylococcus aureus (MSSA) and Enterococcus faecalis, another set a minute later had MSSA. Urine culture was negative. Blood cultures on 09/15/2019 and 09/16/2019 were no growth after [address] showed no acute findings. No septic emboli. No pneumonia. There is a T6-T10 7.4 cm discitis superior to inferior and some mild splenomegaly. Transesophageal echocardiogram showed no endocarditis.. No vegetations on mitral valve. IMPRESSION: 1. Acute vertebral spondylodiscitis with culture positive for Enterobacter cloacae, on IV cefepime 2 grams every 8 hours. The patient was diagnosed with discitis on 08/08/2019 but did not take his IV antibiotics as prescribed. I recommended that he takes at least 2 weeks of IV antibiotics in the hospital this time before with we switch him to oral. 2. MSSA bacteremia, on IV cefepime with repeat negative cultures. Negative transesophageal echocardiogram (GEOVANNA). No evidence of metastatic infection at this point. 3. Enterococcus (E) faecalis on one blood culture. I suspect this was a contaminant. Repeat cultures have been negative. 4. Drug abuse, opiates and cocaine. The patient is willing to go to [facility] and comply with treatment recommendations. 5. Chronic hepatitis C. Treated on two different occasions in the halfway system with Liv, and possibly Arya, or Gilberto; he is not sure and he got cured but relapsed and is reinfected. PLAN: Continue IV cefepime. I would disregard Enterococcus faecalis on blood culture. I suspect it is more of a contaminant. Continue with IV cefepime for at least 2 weeks from negative cultures, which would be September 29, 2019, following which we can switch him to oral antibiotics if continues to improve. Please consult patient and family services (PFS) for placement to reestablish with [facility] for addiction. The patient does not have a home; he has been homeless.
[2019-09-17] MEDS: RAMELTEON 8 MG TAB (ROZEREM) PO SCH (20:56)
[2019-09-18 02:00] VITALS: BP 126/70
[2019-09-18] MEDS: CEFEPIME HCL 2 GM in D5W MINI-BAG PLUS 50 ML IV SCH ×3 (04:25→20:01)
[2019-09-18] MEDS: KETOROLAC 30 MG/ML 1ML VIAL IV SCH ×3 (04:25→20:00)
[2019-09-18] MEDS: HEPARIN SOD (PORCINE) 5000UNITS/ML VIAL (J1644 PER 1000UNITS) SC SCH ×3 (05:07→20:01)
[2019-09-18] MEDS: NS 1,000 ML IV SCH ×2 (05:38→16:32)
[2019-09-18 06:00] VITALS: BP 107/71
[2019-09-18] MEDS ORDERED: MAG SULF 1GM/100ML (MAG RUN) 1 GM in IV 1 EA IV ONE (08:00)
[2019-09-18 09:31] LABS: BASO # 0.1 10^3/uL (0.0-0.2); EOS # 0.4 10^3/uL (0.0-0.5); EOS % 3.8 % (0.0-3.0); HEMATOCRIT 35.3 % (42.0-52.0); HEMOGLOBIN 11.4 g/dl (13.5-17.5); LYMPH % 31.8 % (24.0-44.0); MEAN CORPUSCULAR HEMOGLOBIN 27.7 pg (27.0-33.0); MEAN CORPUSCULAR HGB CONC 32.3 g/dl (32.0-36.5); MEAN CORPUSCULAR VOLUME 85.7 fl (80.0-96.0); MONO # 0.7 10^3/uL (0.0-0.8); MONO % 7.5 % (0.0-5.0); NEUTROPHILS # 5.1 10^3/uL (1.5-8.5); NEUTROPHILS % 54.4 % (36.0-66.0); PLATELET COUNT, AUTOMATED 308 10^3/uL (150-450); RED BLOOD COUNT 4.12 10^6/uL (4.30-6.10); WHITE BLOOD COUNT 9.3 10^3/uL (4.0-10.0)
[2019-09-18 09:50] LABS: BLOOD UREA NITROGEN 11 MG/DL (7-18); CALCIUM LEVEL 8.3 MG/DL (8.5-10.1); CARBON DIOXIDE LEVEL 26 MEQ/L (21-32); CHLORIDE LEVEL 107 MEQ/L (98-107); CREATININE FOR GFR 0.64 MG/DL (0.70-1.30); GLOMERULAR FILTRATION RATE > 60.0 (>60); GLUCOSE, FASTING 126 MG/DL (70-100); MAGNESIUM LEVEL 1.6 MG/DL (1.8-2.4); POTASSIUM SERUM 3.7 MEQ/L (3.5-5.1); SODIUM LEVEL 142 MEQ/L (136-145)
[2019-09-18 10:00] VITALS: BP 115/67
[2019-09-18 10:51] LABS: HEPATITIS C VIRUS ABY INDEX > 11.0 INDEX (<0.8)
--- NOTE | 2019-09-18 10:53 | IPNPDOC ---
Text Note Date of Service The patient was seen on 09/18/19. NOTE SUBJECTIVE: -HDS, afebrile -Denies chest pain, n/v/d, fevers, chills, shortness of breath. -09/12 BCx grew MSSA + E.fecalis (1 of 2 bottles) OBJECTIVE: VITALS: HDS, afebrile GENERAL: NAD EYES: PERRLA, EOMI, anicteric HENT, MOUTH: NCAT, MMM NECK: SUPPLE, no JVD CV: Regular rate and rhythm, S1S2 normal, no murmurs/rubs/gallops RESPIRATORY: Clear to auscultation bilaterally, no rales/rhonchi/wheezes GI: Normoactive, soft, nontender, nondistended, no rebound or guarding, no organomegaly EXT: No swelling, no edema, WWP SKIN: Scattered scabs on upper and lower ext. Multiple tattoos. Otherwise without open lesions, no rashes, no erythema NEUROLOGIC: No focal deficits CURRENT MEDICATIONS: Please see below LABORATORY DATA: Reviewed. AM labs are pending MICROBIOLOGY: 09/14 BCx NGTD 09/13/19 Blood Culture- Staph, MSSA 09/13/19 Blood Culture- Staph, MSSA, E.fecalis IMAGING: TTE without evidence of vegetations GEOVANNA without evidence of vegetations ASSESSMENT: 29 yo M IVDU with known enterobacter OM, now found to have MSSA bacteremia as well as 1 bottle growing E.fecalis that was deemed likely contaminant. PLAN: 1. MSSA likely 2/2 to IV drug use. 1 of the 09/12/BCx bottles growing E.fecalis that was deemed likely contaminant. - GEOVANNA showed no vegetations - CXR was wnl - 09/12 BCx grew MSSA x 2, and one of the cultures grew E.fecalis - UCx was negative - Dc'd Vancomycin given MSSA bacteremia, continued cefepime - 09/14 BCx NGTD - ID consulted, appreciate recs, will need to stay here for the entire 6 weeks of IV abx treatment - Already on cefepime for Enterobacter OM which will cover MSSA. Per ID, will not add back vanc for the E.fecalis as it was likely a contaminant 2. Acute on chronic osteomyelitis of / 2/2 Enterobacter cloacae - likely 2/2 IV drug abuse. - Previously left AMA on 08/27 - Patient has a recent diagnosis of osteomyelitis/discitis of T8-T9, diagnosed at [facility] s/p biopsy. - Initial culture results were positive for Enterobacter cloacae; recommendations at that time were cefepime 2g q8h - Currently patient does not have any focal neurologic deficits; no urinary incontinence or bowel incontinence - with elevated ESR and CRP and 6/7 MRI showing Osteo/Diskitis at the T8/9 level with surrounding inflammatory changes and phlegmanous changes extending cranially towards T5/6 and caudally to T10/11. No definite abscess formation. - Orthopedic surgery was consulted and Dr. Alexandre recommended no surgical intervention at this time - ID consulted also consulted and recommended to continue cefepime 2gQ8H, at this time suggesting 2 weeks of IV abx and then switch to PO for a 6 week course. 4. Hypomagnesemia: repleted - monitor 5. Hyponatremia 2/2 hypotonic hypovolemia, resolved -s/p IVF, stop fluids at this time. 6. Acute kidney injury 2/2 to dehydration. Resolved with hydration - Avoid nephrotoxic medications. - Daily BMP 7. Substance abuse with hx of IV Methamphetamines and Opiates. - Currently no signs/symptoms of withdrawal - HIV / Syphilis screen negative on 08/27 - Ativan PRN 8. Hepatitis C - Liver function is within normal limits - Unknown if patient has had treatment. Not an acute care issue for this admission. 9. Normocytic anemia - H/H has been stable since early 2019 - No signs of acute bleeding - studies c/w AOCI with known osteomyelitis and elevated inflammatory markers - Daily CBC 10. DVT prophylaxis - Heparin SQ DISPOSITION: Currently under inpatient status. Patient is homeless so this comp licates discharge. For now, per ID, will plan on 2 weeks IV abx inpatient and then switch to PO. PFS also onboard. VS,Fishbone, I+O VS, Fishbone, I+O Laboratory Tests 09/17/19 09:46 Vital Signs Date Time Temp Pulse Resp B/P (MAP) Pulse Ox O2 Delivery O2 Flow Rate FiO2 09/18/19 06:00 97.9 62 18 107/71 (83) 98 Room Air I&O- Last 24 Hours up to 6 AM 09/18/19 06:00 Intake Total 5170 ml Output Total 1500 ml Balance 3670 ml CORI WARD MD Sep 18, 2019 07:44
[2019-09-18 17:00] VITALS: BP 120/66
--- NOTE | 2019-09-18 18:31 | IPN ---
DATE: 09/18/2019 Joel is in good spirits today. He has been very compliant and has been following most recommendations. He refuses to be on heparin 5000 units subcutaneous every 8 hours. He states his back pain is markedly better. His last dose of morphine was at 5 a.m. on September 15. He states that he sees a marked difference when he starts using his intravenous (IV) antibiotics. His back pain dramatically improves. He has no cough. No shortness of breath. No fever or pain. Mild mid-thoracic back pain. LABORATORY DATA: White count 9.3, hemoglobin 11.4, hematocrit 35.3, platelets 308, 54% neutrophils, 32% lymphocytes, 7% monocytes. Sodium 142, potassium 3.7, chloride 107, bicarbonate 26, BUN 11, creatinine 0.64, glucose 126, calcium 8.3, magnesium 1.6. Hepatitis C antibody more than 11. HCV RNA pending. MRSA screen detected. Blood cultures, two sets, had MSSA ,and one out of two sets had Enterococcus faecalis. I suspect the E. Faecalis was a contaminant. Repeat blood cultures on September 14, one set, is negative, and September 15 one set is negative. Chest CT showed no evidence of infection. Disc space discitis from T8 to T9 with paraspinal soft tissue swelling from T6 to T10. Mild splenomegaly. PHYSICAL EXAMINATION: HEART: Normal S1, S2. No murmurs, rubs, or gallops. LUNGS: Clear. No wheezes, rales, or rhonchi. ABDOMEN: Soft, nontender. No hepatosplenomegaly. BACK: Mid thoracic tenderness, mild. EXTREMITIES: No clubbing, cyanosis, or edema. Some tattoos. No abscesses. Temperature is 98.10, pulse 72, respirations 18, blood pressure 115/67, oxygen saturation 97% on room air. IMPRESSION: 1. Acute vertebral spondylodiscitis. Culture positive for Enterobacter cloacae, on IV cefepime 2 grams every 8 hours. The patient will be treated with at least 2 weeks of IV antibiotics from this admission, followed by Levisaiasuin. 2. Methicillin-sensitive Staphylococcus aureus (MSSA) bacteremia, on IV cefepime with repeat negative cultures. Most likely transient bacteremia from IV drug use. Negative CT chest. Negative transesophageal echocardiogram (GEOVANNA). 3. Enterococcus (E) faealis, on one of the blood cultures. Suspect this is a contaminant . Would not treat. 4. History of the drug abuse, opiates and cocaine. The patient is willing to followup at [facility]. 5. Chronic hepatitis C, treated on two different occasions in the alf system with Epclusa. Repeat hepatitis C antibody was done to see if he still has RNA. PLAN: Continue cefepime 2 grams IV every 8 hours. Treat minimum until September 28 with IV followed by a oral levofloxacin. Consult patient and family services (PFS) for homelessness. Provide connection with telephonic nurse case manager as an outpatient to help him with housing and compliance with doctor visits. Refer to [facility] upon discharge. Will consult microbiology to check his Staphylococcus aureus was susceptible to levofloxacin. ANNELISE
[2019-09-18] MEDS: RAMELTEON 8 MG TAB (ROZEREM) PO SCH (20:00)
[2019-09-18 22:00] VITALS: BP 120/65
[2019-09-19] MEDS: NS 1,000 ML IV SCH ×3 (01:52→20:24)
[2019-09-19] MEDS: KETOROLAC 30 MG/ML 1ML VIAL IV SCH ×2 (04:48→12:08)
[2019-09-19] MEDS: HEPARIN SOD (PORCINE) 5000UNITS/ML VIAL (J1644 PER 1000UNITS) SC SCH ×3 (04:48→20:24)
[2019-09-19] MEDS: CEFEPIME HCL 2 GM in D5W MINI-BAG PLUS 50 ML IV SCH ×3 (04:48→20:24)
[2019-09-19 12:35] LABS: BASO # 0.1 10^3/uL (0.0-0.2); EOS # 0.3 10^3/uL (0.0-0.5); EOS % 3.5 % (0.0-3.0); HEMOGLOBIN 10.8 g/dl (13.5-17.5); LYMPH # 2.4 10^3/uL (1.5-5.0); LYMPH % 29.5 % (24.0-44.0); MEAN CORPUSCULAR HEMOGLOBIN 27.4 pg (27.0-33.0); MEAN CORPUSCULAR HGB CONC 31.8 g/dl (32.0-36.5); MEAN CORPUSCULAR VOLUME 86.3 fl (80.0-96.0); MONO # 0.6 10^3/uL (0.0-0.8); MONO % 7.3 % (0.0-5.0); NEUTROPHILS # 4.6 10^3/uL (1.5-8.5); NEUTROPHILS % 57.1 % (36.0-66.0); PLATELET COUNT, AUTOMATED 271 10^3/uL (150-450); RED BLOOD COUNT 3.94 10^6/uL (4.30-6.10); WHITE BLOOD COUNT 8.1 10^3/uL (4.0-10.0)
[2019-09-19 13:04] LABS: BLOOD UREA NITROGEN 12 MG/DL (7-18); CALCIUM LEVEL 8.1 MG/DL (8.5-10.1); CARBON DIOXIDE LEVEL 30 MEQ/L (21-32); CHLORIDE LEVEL 106 MEQ/L (98-107); CREATININE FOR GFR 0.57 MG/DL (0.70-1.30); GLOMERULAR FILTRATION RATE > 60.0 (>60); GLUCOSE, FASTING 92 MG/DL (70-100); MAGNESIUM LEVEL 1.6 MG/DL (1.8-2.4); POTASSIUM SERUM 4.6 MEQ/L (3.5-5.1); SODIUM LEVEL 141 MEQ/L (136-145)
--- NOTE | 2019-09-19 13:51 | IPNPDOC ---
Text Note Date of Service The patient was seen on 09/19/19. NOTE SUBJECTIVE: -HDS, afebrile -Denies chest pain, n/v/d, fevers, chills, shortness of breath. OBJECTIVE: VITALS: HDS, afebrile GENERAL: NAD EYES: PERRLA, EOMI, anicteric HENT, MOUTH: NCAT, MMM NECK: SUPPLE, no JVD CV: Regular rate and rhythm, S1S2 normal, no murmurs/rubs/gallops RESPIRATORY: Clear to auscultation bilaterally, no rales/rhonchi/wheezes GI: Normoactive, soft, nontender, nondistended, no rebound or guarding, no organomegaly EXT: No swelling, no edema, WWP SKIN: Scattered scabs on upper and lower ext. Multiple tattoos. Otherwise without open lesions, no rashes, no erythema NEUROLOGIC: No focal deficits CURRENT MEDICATIONS: Please see below LABORATORY DATA: Reviewed. AM labs are pending MICROBIOLOGY: 09/14 BCx NGTD 09/13/19 Blood Culture- Staph, MSSA 09/13/19 Blood Culture- Staph, MSSA, E.fecalis IMAGING: TTE without evidence of vegetations GEOVANNA without evidence of vegetations ASSESSMENT: 29 yo M IVDU with known enterobacter OM, now found to have MSSA bacteremia as well as 1 bottle growing E.fecalis that was deemed likely contaminant. PLAN: 1. MSSA likely 2/2 to IV drug use. 1 of the BCx bottles growing E.fecalis that was deemed likely contaminant. - GEOVANNA showed no vegetations - CXR was wnl - 09/12 BCx grew MSSA x 2, and one of the cultures grew E.fecalis - UCx was negative - Dc'd Vancomycin given MSSA bacteremia, continued cefepime - 09/14 BCx NGTD - ID consulted, appreciate recs, will need at least 2 weeks of IV cefepime, then will consider switch to PO levaquin - Already on cefepime for Enterobacter OM which will cover MSSA. 2. 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 - Previously left AMA on 08/27 - Patient has a recent diagnosis of osteomyelitis/discitis of T8-T9, diagnosed at [facility] s/p biopsy. - Initial culture results were positive for Enterobacter cloacae; recommendations at that time were cefepime 2g q8h - Currently patient does not have any focal neurologic deficits; no urinary incontinence or bowel incontinence - with elevated ESR and CRP and 6/ MRI showing Osteo/Diskitis at the T8/9 level with surrounding inflammatory changes and phlegmanous changes extending cranially towards T5/6 and caudally to T10/11. No definite abscess formation. - Orthopedic surgery was consulted and Dr. Alexandre recommended no surgical intervention at this time - ID consulted also consulted and recommended to continue cefepime 2gQ8H, at this time suggesting 2 weeks of IV abx and then switch to PO levaquin for a 6 week course. 4. Hypomagnesemia: repleted - monitor 5. Hyponatremia 2/2 hypotonic hypovolemia, resolved -s/p IVF, stop fluids at this time. 6. Acute kidney injury 2/2 to dehydration. Resolved with hydration - Avoid nephrotoxic medications. - Daily BMP 7. Substance abuse with hx of IV Methamphetamines and Opiates. - Currently no signs/symptoms of withdrawal - HIV / Syphilis screen negative on 08/27 - Ativan PRN 8. Hepatitis C - Liver function is within normal limits - per ID, has been treated 3 times but possibility is high for reinfection given persistent IVDU, f/u pending viral load 9. Normocytic anemia - H/H has been stable since early 2019 - No signs of acute bleeding - studies c/w AOCI with known osteomyelitis and elevated inflammatory markers - Daily CBC 10. DVT prophylaxis - Heparin SQ 11. Insomnia: -Tried rozerem without effect, will give trazodone 25mg QHS tonight DISPOSITION: Currently under inpatient status. Patient is homeless so this complicates discharge. For now, per ID, will plan on 2 weeks IV abx inpatient and then switch to PO. PFS also onboard. VS,Fishbone, I+O VS, Fishbone, I+O Laboratory Tests 09/18/19 09:12 Vital Signs Date Time Temp Pulse Resp B/P (MAP) Pulse Ox O2 Delivery O2 Flow Rate FiO2 09/18/19 22:00 98.1 66 18 120/65 (83) 97 Room Air I&O- Last 24 Hours up to 6 AM 09/19/19 06:00 Intake Total 5405 ml Output Total 4375 ml Balance 1030 ml CORI WARD MD Sep 19, 2019 07:57
[2019-09-19 14:00] VITALS: BP 120/65
[2019-09-19] MEDS ORDERED: traZODone 25MG PER 1/2 TABLET PO SCH (21:00)
[2019-09-19 21:15] VITALS: BP 122/65
[2019-09-20] MEDS: CEFEPIME HCL 2 GM in D5W MINI-BAG PLUS 50 ML IV SCH ×3 (04:23→20:39)
[2019-09-20] MEDS: MORPHINE 4 MG/ML 1ML VIAL/SYRINGE (J2270) IV PRN ×3 (04:54→16:58)
[2019-09-20] MEDS: HEPARIN SOD (PORCINE) 5000UNITS/ML VIAL (J1644 PER 1000UNITS) SC SCH ×3 (04:58→22:00)
[2019-09-20 05:00] VITALS: BP 140/75
[2019-09-20 06:10] LABS: BASO # 0.1 10^3/uL (0.0-0.2); BASO % 0.6 % (0.0-1.0); EOS # 0.3 10^3/uL (0.0-0.5); EOS % 2.9 % (0.0-3.0); HEMATOCRIT 33.6 % (42.0-52.0); HEMOGLOBIN 11.1 g/dl (13.5-17.5); MEAN CORPUSCULAR HEMOGLOBIN 28.2 pg (27.0-33.0); MEAN CORPUSCULAR VOLUME 85.5 fl (80.0-96.0); MONO # 0.7 10^3/uL (0.0-0.8); MONO % 6.1 % (0.0-5.0); NEUTROPHILS # 7.2 10^3/uL (1.5-8.5); NEUTROPHILS % 62.8 % (36.0-66.0); PLATELET COUNT, AUTOMATED 299 10^3/uL (150-450); RED BLOOD COUNT 3.93 10^6/uL (4.30-6.10); WHITE BLOOD COUNT 11.6 10^3/uL (4.0-10.0)
[2019-09-20 06:34] LABS: BLOOD UREA NITROGEN 13 MG/DL (7-18); CALCIUM LEVEL 8.6 MG/DL (8.5-10.1); CARBON DIOXIDE LEVEL 27 MEQ/L (21-32); CHLORIDE LEVEL 105 MEQ/L (98-107); CREATININE FOR GFR 0.63 MG/DL (0.70-1.30); GLOMERULAR FILTRATION RATE > 60.0 (>60); GLUCOSE, FASTING 88 MG/DL (70-100); MAGNESIUM LEVEL 1.7 MG/DL (1.8-2.4); POTASSIUM SERUM 3.9 MEQ/L (3.5-5.1); SODIUM LEVEL 138 MEQ/L (136-145)
[2019-09-20] MEDS ORDERED: MAG SULF 1GM/100ML (MAG RUN) 1 GM in IV 1 EA IV ONE (09:00)
--- NOTE | 2019-09-20 12:10 | IPNPDOC ---
Text Note Date of Service The patient was seen on 09/20/19. NOTE SUBJECTIVE: -HDS, afebrile -Denies chest pain, n/v/d, fevers, chills, shortness of breath. OBJECTIVE: VITALS: HDS, afebrile GENERAL: NAD EYES: PERRLA, EOMI, anicteric HENT, MOUTH: NCAT, MMM NECK: SUPPLE, no JVD CV: Regular rate and rhythm, S1S2 normal, no murmurs/rubs/gallops RESPIRATORY: Clear to auscultation bilaterally, no rales/rhonchi/wheezes GI: Normoactive, soft, nontender, nondistended, no rebound or guarding, no organomegaly EXT: No swelling, no edema, WWP SKIN: Scattered scabs on upper and lower ext. Multiple tattoos. Otherwise without open lesions, no rashes, no erythema NEUROLOGIC: No focal deficits CURRENT MEDICATIONS: Please see below LABORATORY DATA: Reviewed. WBC 11.6 Hgb 11.1 Cr 0.63 mag 1.7 MICROBIOLOGY: 09/15 BCx NGTD 09/14 BCx Negative 09/13/19 Blood Culture- Staph, MSSA 09/13/19 Blood Culture- Staph, MSSA, E.fecalis IMAGING: TTE without evidence of vegetations GEOVANNA without evidence of vegetations ASSESSMENT: 29 yo M IVDU with known enterobacter OM, now found to have MSSA bacteremia as well as 1 bottle growing E.fecalis that was deemed likely contaminant. PLAN: 1. MSSA likely 2/2 to IV drug use. 1 of the BCx bottles growing E.fecalis that was deemed likely contaminant. - GEOVANNA showed no vegetations - CXR was wnl - 09/12 BCx grew MSSA x 2, and one of the cultures grew E.fecalis - UCx was negative - Dc'd Vancomycin given MSSA bacteremia, continued cefepime - 09/14 BCx NGTD - ID consulted, appreciate recs, will need at least 2 weeks of IV cefepime, then will consider switch to PO levaquin - Already on cefepime for Enterobacter OM which will cover MSSA. 2. 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 - Previously left AMA on 08/27 - Patient has a recent diagnosis of osteomyelitis/discitis of T8-T9, diagnosed at [facility] s/p biopsy. - Initial culture results were positive for Enterobacter cloacae; recommendations at that time were cefepime 2g q8h - Currently patient does not have any focal neurologic deficits; no urinary incontinence or bowel incontinence - with elevated ESR and CRP and 6/7 MRI showing Osteo/Diskitis at the T8/9 level with surrounding inflammatory changes and phlegmanous changes extending cranially towards T5/6 and caudally to T10/11. No definite abscess formation. - Orthopedic surgery was consulted and Dr. Alexandre recommended no surgical interve ntion at this time - ID consulted also consulted and recommended to continue cefepime 2gQ8H, at this time suggesting 2 weeks of IV abx and then switch to PO levaquin for a 6 week course. 4. Hypomagnesemia: repleted - monitor 5. Hyponatremia 2/2 hypotonic hypovolemia, resolved -s/p IVF, stop fluids at this time. 6. Acute kidney injury 2/2 to dehydration. Resolved with hydration - Avoid nephrotoxic medications. - Daily BMP 7. Substance abuse with hx of IV Methamphetamines and Opiates. - Currently no signs/symptoms of withdrawal - HIV / Syphilis screen negative on 08/27 - Ativan PRN 8. Hepatitis C - Liver function is within normal limits - per ID, has been treated 3 times but possibility is high risk for reinfection given persistent IVDU, f/u pending viral load 9. Normocytic anemia - H/H has been stable since early 2019 - No signs of acute bleeding - studies c/w AOCI with known osteomyelitis and elevated inflammatory markers - Daily CBC 10. DVT prophylaxis - Heparin SQ 11. Insomnia: -ambien 5 QHS DISPOSITION: Currently under inpatient status. Patient is homeless so this complicates discharge. For now, per ID, will plan on 2 weeks IV abx inpatient and then switch to PO. PFS also onboard. VS,Fishbone, I+O VS, Fishbone, I+O Laboratory Tests 09/19/19 12:24 09/20/19 05:39 Vital Signs Date Time Temp Pulse Resp B/P (MAP) Pulse Ox O2 Delivery O2 Flow Rate FiO2 09/20/19 05:04 16 09/20/19 05:00 97.8 73 140/75 (96) 94 Room Air I&O- Last 24 Hours up to 6 AM 09/20/19 06:00 Intake Total 6105 ml Output Total 3525 ml Balance 2580 ml CORI WARD MD Sep 20, 2019 08:20
[2019-09-20 14:00] VITALS: BP 115/55
[2019-09-20] MEDS: NS 1,000 ML IV SCH ×2 (16:49→20:00)
[2019-09-20] MEDS: zolPIDEM TARTRATE 5 MG TAB PO SCH (20:39)
[2019-09-20 22:00] VITALS: BP 129/60
[2019-09-21] MEDS: MORPHINE 4 MG/ML 1ML VIAL/SYRINGE (J2270) IV PRN ×4 (01:02→17:06)
[2019-09-21] MEDS: CEFEPIME HCL 2 GM in D5W MINI-BAG PLUS 50 ML IV SCH ×3 (03:52→20:45)
[2019-09-21] MEDS: NS 1,000 ML IV SCH ×2 (03:52→15:51)
[2019-09-21] MEDS: HEPARIN SOD (PORCINE) 5000UNITS/ML VIAL (J1644 PER 1000UNITS) SC SCH ×3 (06:00→21:10)
[2019-09-21 12:01] LABS: HEMATOCRIT 34.6 % (42.0-52.0); HEMOGLOBIN 10.9 g/dl (13.5-17.5); MEAN CORPUSCULAR HEMOGLOBIN 27.7 pg (27.0-33.0); MEAN CORPUSCULAR HGB CONC 31.5 g/dl (32.0-36.5); MEAN CORPUSCULAR VOLUME 87.8 fl (80.0-96.0); PLATELET COUNT, AUTOMATED 297 10^3/uL (150-450); RED BLOOD COUNT 3.94 10^6/uL (4.30-6.10); WHITE BLOOD COUNT 10.7 10^3/uL (4.0-10.0)
[2019-09-21 12:20] LABS: BLOOD UREA NITROGEN 13 MG/DL (7-18); CALCIUM LEVEL 8.6 MG/DL (8.5-10.1); CARBON DIOXIDE LEVEL 31 MEQ/L (21-32); CHLORIDE LEVEL 103 MEQ/L (98-107); CREATININE FOR GFR 0.64 MG/DL (0.70-1.30); GLOMERULAR FILTRATION RATE > 60.0 (>60); GLUCOSE, FASTING 92 MG/DL (70-100); POTASSIUM SERUM 4.3 MEQ/L (3.5-5.1); SODIUM LEVEL 139 MEQ/L (136-145)
[2019-09-21 14:00] VITALS: BP 132/61
[2019-09-21] MEDS: IBUPROFEN 400 MG TAB PO SCH ×2 (16:49→21:10)
[2019-09-21] MEDS ORDERED: PROHANCE 279.3MG/ML 5ML VIAL As Ordered ONE (17:34)
[2019-09-21] MEDS ORDERED: PROHANCE 279.3MG/ML 15ML VIAL As Ordered ONE (17:34)
--- NOTE | 2019-09-21 18:24 | IPNPDOC ---
Text Note Date of Service The patient was seen on 09/21/19. NOTE SUBJECTIVE: -HDS, afebrile -Denies chest pain, n/v/d, fevers, chills, shortness of breath. -Refused labs this AM, then had them later midmorning -Reports mid backpain that he says is characteristically worse than prior -Slept much better with the ambien OBJECTIVE: VITALS: HDS, afebrile GENERAL: NAD EYES: PERRLA, EOMI, anicteric HENT, MOUTH: NCAT, MMM NECK: SUPPLE, no JVD CV: Regular rate and rhythm, S1S2 normal, no murmurs/rubs/gallops RESPIRATORY: Clear to auscultation bilaterally, no rales/rhonchi/wheezes GI: Normoactive, soft, nontender, nondistended, no rebound or guarding, no organomegaly EXT: No swelling, no edema, WWP SKIN: Scattered scabs on upper and lower ext. Multiple tattoos. Otherwise without open lesions, no rashes, no erythema NEUROLOGIC: No focal deficits CURRENT MEDICATIONS: Please see below LABORATORY DATA: Reviewed. WBC 10.7 Hgb 10.9 Cr 0.64 MICROBIOLOGY: 09/15 BCx NGTD 09/14 BCx Negative 09/13/19 Blood Culture- Staph, MSSA 09/13/19 Blood Culture- Staph, MSSA, E.fecalis IMAGING: TTE without evidence of vegetations GEOVANNA without evidence of vegetations ASSESSMENT: 29 yo M IVDU with known enterobacter OM, now found to have MSSA bacteremia as well as 1 bottle growing E.fecalis that was deemed likely contaminant. PLAN: 1. MSSA likely 2/2 to IV drug use. 1 of the BCx bottles growing E.fecalis that was deemed likely contaminant. - GEOVANNA showed no vegetations - CXR was wnl - 09/12 BCx grew MSSA x 2, and one of the cultures grew E.fecalis - UCx was negative - Continue cefepime - 09/14 BCx NGTD - ID consulted, appreciate recs, will need at least 2 weeks of IV cefepime, and given worsening back pain and pending T-spine MRI, may be developing an epidural abscess and may require drainage + IV abx. Follow up T-spine MRI. 2. 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 - Previously left AMA on 08/27 - Patient has a recent diagnosis of osteomyelitis/discitis of T8-T9, diagnosed at [facility] s/p [facility]. - Initial culture results were positive for Enterobacter cloacae; recommendations at that time were cefepime 2g q8h - ID consulted, appreciate recs, will need at least 2 weeks of IV cefepime, and given worsening back pain and pending T-spine MRI, may be developing an epidural abscess and may require drainage + IV abx. Follow up T-spine MRI. - with elevated ESR and CRP and 6/ MRI showing Osteo/Diskitis at the T8/9 level with surrounding inflammatory changes and phlegmanous changes extending cranially towards T5/6 and caudally to T10/11. No definite abscess formation at that time. - Orthopedic surgery was consulted and Dr. Alexandre recommended no surgical intervention at that time. 4. Hypomagnesemia: repleted - monitor 5. Hyponatremia 2/2 hypotonic hypovolemia, resolved 6. Acute kidney injury 2/2 to dehydration. Resolved with hydration - Avoid nephrotoxic medications. - Daily BMP 7. Substance abuse with hx of IV Methamphetamines and Opiates. - Currently no signs/symptoms of withdrawal - HIV / Syphilis screen negative on 08/27 - Ativan PRN 8. Hepatitis C - Liver function is within normal limits - per ID, has been treated 3 times but possibility is high risk for reinfection given persistent IVDU, f/u pending viral load 9. Normocytic anemia - H/H has been stable since early 2019 - No signs of acute bleeding - studies c/w AOCI with known osteomyelitis and elevated inflammatory markers - Daily CBC 10. DVT prophylaxis - Heparin SQ 11. Insomnia: -ambien 5 QHS DISPOSITION: Currently under inpatient status. Patient is homeless so this complicates discharge. May need to do entire treatment course inpatient. VS,Fishbone, I+O VS, Fishbone, I+O Laboratory Tests 09/21/19 11:24 Vital Signs Date Time Temp Pulse Resp B/P (MAP) Pulse Ox O2 Delivery O2 Flow Rate FiO2 09/21/19 16:48 16 Room Air 09/21/19 14:00 98.6 69 132/61 (84) 99 I&O- Last 24 Hours up to 6 AM 09/21/19 06:00 Intake Total 1620 ml Output Total 3970 ml Balance -2350 ml CORI WARD MD Sep 21, 2019 18:24
--- NOTE | 2019-09-21 19:15 | REPVR ---
PROCEDURE INFORMATION: Exam: MR Lumbar Spine Without and With Contrast. Exam date and time: 09/21/2019 6:26 PM Age: 29 years old Clinical indication: Pain; [place]; Additional info: Mssa bacteremia / t8-9 discitis TECHNIQUE: Imaging protocol: Multiplanar magnetic resonance images of the lumbar spine without and with intravenous contrast. Contrast material: PROHANCE; Contrast volume: 17 ml; Contrast route: IV; COMPARISON: MRI-LS SPINE W/O FOLL WITH CON 08/08/2019 12:35 PM FINDINGS: Limitations: Patient motion. Vertebrae: There is mild increased signal in the superior endplate of L4 as well as within the L5-S1 vertebra particularly to the right of midline posteriorly which enhance with gadolinium. Spinal cord: Not well visualized. Discs/Spinal canal/Neural foramina: L3-L4: There is a centrally bulging annulus at L3-L4 without evidence of neural compromise. L4-L5: There is a small central/ left paracentral disc herniation likely compressing the exiting left L5 nerve root. L5-S1: There is a probable left paracentral disc herniation likely affecting the left S1 nerve root. Soft tissues: Unremarkable. IMPRESSION: Limited examination due to patient motion. There is increased signal and enhancement within the vertebral body endplates posteriorly to the right of midline at the L5-S1 level and the disc which may be due to degeneration however discitis/osteomyelitis are also within the differential. No epidural abscess is identified. The appearance is unchanged in comparison to the 08/08/2019 MRI. Electronically signed by: Sally Nash On 09/21/2019 19:15:21 PM
--- NOTE | 2019-09-21 19:30 | REPVR ---
PROCEDURE INFORMATION: Exam: MR Thoracic Spine Without and With Contrast Exam date and time: 09/21/2019 6:26 PM Age: 29 years old Clinical indication: Pain in thoracic spine; Without myelpathy or radiculopathy; Patient HX: F/u discitis; Additional info: Worsening back pain with known discitis TECHNIQUE: Imaging protocol: Multiplanar magnetic resonance images of the thoracic spine without and with intravenous contrast. Contrast material: PROHANCE; Contrast volume: 17 ml; Contrast route: IV; COMPARISON: MRI-T SPINE W/O FOLL WITH CON 09/13/2019 12:08 PM FINDINGS: Limitations: Patient motion. Vertebrae: See "Discs/Spinal canal/Neural foramina" finding. Spinal cord: No cord compression. Discs/Spinal canal/Neural foramina: There again appears to be fluid in the T8-9 disc space and mild loss of vertebral body height at the T8 and T9 levels with loss of the endplate cortical margins consistent with discitis/osteomyelitis. There is a small fluid collection along the anterior margin of the disc measuring 1 cm which previously measured 1.8 cm. Series 401, image 1 frame 9. Increased signal is seen throughout the T8 and T9 vertebra on the T2 weighted and STIR sequences. There is also increased intensity in the paraspinous soft tissues at this level although the axial images are very limited. There is also enhancement within the vertebral bodies and intervening disc at the T8-9 level and surrounding paraspinous soft tissues without obvious epidural abscess. The anterior longitudinal ligament appears to be discontinuous at the T8 level. Series 1001, image 1 frame 5. IMPRESSION: There is persistent discitis/osteomyelitis at the T8-9 level with perhaps decrease in size of the small prevertebral fluid collection. There also appears to be diminishment in the intensity and extension of the prevertebral enhancement which extends from approximately T5 through T10 levels in comparison to the 09/13/2019 MRI. No new levels of discitis/osteomyelitis are apparent. There is no definite evidence of an epidural abscess however the examination is limited. Electronically signed by: Sally Nash On 09/21/2019 19:29:46 PM
[2019-09-21] MEDS: zolPIDEM TARTRATE 5 MG TAB PO SCH (21:10)
[2019-09-21 22:00] VITALS: BP 108/81
[2019-09-22] MEDS: CEFEPIME HCL 2 GM in D5W MINI-BAG PLUS 50 ML IV SCH (04:00)
[2019-09-22] MEDS: IBUPROFEN 400 MG TAB PO SCH (05:21)
[2019-09-22] MEDS: HEPARIN SOD (PORCINE) 5000UNITS/ML VIAL (J1644 PER 1000UNITS) SC SCH (05:21)
[2019-09-22 06:00] VITALS: BP 149/88
[2019-09-22] MEDS ORDERED: LevoFLOXacin 750 MG TABLET PO SCH (06:00)
[2019-09-22 06:34] LABS: HEMATOCRIT 39.7 % (42.0-52.0); HEMOGLOBIN 12.6 g/dl (13.5-17.5); MEAN CORPUSCULAR HEMOGLOBIN 28.1 pg (27.0-33.0); MEAN CORPUSCULAR HGB CONC 31.7 g/dl (32.0-36.5); MEAN CORPUSCULAR VOLUME 88.4 fl (80.0-96.0); PLATELET COUNT, AUTOMATED 302 10^3/uL (150-450); RED BLOOD COUNT 4.49 10^6/uL (4.30-6.10); WHITE BLOOD COUNT 11.1 10^3/uL (4.0-10.0)
[2019-09-22 07:09] LABS: BLOOD UREA NITROGEN 16 MG/DL (7-18); C REACTIVE PROTEIN QUANTITATIV 0.69 MG/DL (0.00-0.30); CALCIUM LEVEL 9.1 MG/DL (8.5-10.1); CARBON DIOXIDE LEVEL 27 MEQ/L (21-32); CHLORIDE LEVEL 105 MEQ/L (98-107); CREATININE FOR GFR 0.77 MG/DL (0.70-1.30); GLOMERULAR FILTRATION RATE > 60.0 (>60); GLUCOSE, FASTING 86 MG/DL (70-100); MAGNESIUM LEVEL 1.6 MG/DL (1.8-2.4); POTASSIUM SERUM 3.9 MEQ/L (3.5-5.1); SODIUM LEVEL 136 MEQ/L (136-145)
[2019-09-22] MEDS: NS 1,000 ML IV SCH ×2 (09:09→09:13)
--- NOTE | 2019-09-22 10:38 | IPN ---
DATE: 09/21/2019 CHIEF COMPLAINT: Low back pain Today it is radiating into his right leg, with any position change the pain shoots into his ankle. He states this is different than the mid thoracic back pain that he had with the Enterobacter thoracic diskitis. He has been afebrile, but his white count is slightly elevated 10.7, hemoglobin 10.9, hematocrit 34.6, platelets 297. Sodium 139, potassium 4.3, chloride 103, bicarb 31, BUN 13, creatinine 0.64, glucose 92, calcium 8.6, C-reactive protein (CRP) 0.78. Blood cultures on 09/14 and 09/15 are negative. On physical exam, temperature is 98.6, pulse 69, respirations 18, blood pressure 132/61, oxygen saturation 99% on room air. Heart: Normal S1-S2. No murmurs. Lungs are clear. No wheezes or rhonchi. Abdomen: Soft, nontender. Back: Mild lumbosacral tenderness. Positive straight leg raising on the right side at 45 degree angle. No thoracic tenderness. IMPRESSION: 1. Enterobacter cloacae diskitis T8-T9 on IV cefepime currently day number nine. 2. Staphylococcus aureus bacteremia with negative chest CT, negative transesophageal echocardiogram. With increasing low back pain, there is a concern for seeding of the lumbar spine and causing another focus of diskitis. Will obtain lumbar spine Magnetic Resonance Imaging (MRI) and one blood culture I suspect is a contaminant. 3. Chronic hepatitis C treated on two different occasions at the nursing home [facility]. The patient has a repeat RNA pending. PLAN: Continue IV cefepime 2 grams every 8 hours. Obtain followup thoracic and lumbar MRI today as his pain is new and radiating to his right leg; this is more of a lumbar complaint now and concern that he may have seeded from Staphylococcus aureus bacteremia. The only good news is that his CRP is down to 0.78, which makes it less likely that this is infectious. Add ibuprofen 400 mg every 8 hours around the clock for back pain and possibly muscle relaxant.
--- NOTE | 2019-09-22 17:53 | DS.PDOC ---
Discharge Summary General Date of Admission Sep 13, 2019 at 14:54 Date of Discharge 09/26/19 Discharge Summary PROCEDURES PERFORMED DURING STAY: [None]. ADMITTING DIAGNOSES: MSSA IV drug abuse Acute on chronic osteomyelitis Hypomagnesemia Hyponatremia Acute kidney injury Substance abuse Hepatitis C Normocytic anemia DISCHARGE DIAGNOSES: IV drug abuse MSSA Acute on chronic osteomyelitis Hypomagnesemia Hyponatremia Acute kidney injury Substance abuse Hepatitis C Normocytic anemia COMPLICATIONS/CHIEF COMPLAINT: Discitis Of Thoracic Region,Illicit Drug Use. HISTORY OF PRESENT ILLNESS: 29 yo M IVDU with known enterobacter OM, now found to have MSSA bacteremia as well as 1 bottle growing E.fecalis that was deemed likely contaminant. HOSPITAL COURSE: During hospital stay following issue addressed. Patient left the hospital AMA 1. MSSA likely 2/2 to IV drug use. 1 of the 09/12/BCx bottles growing E.fecalis that was deemed likely contaminant. - GEOVANNA showed no vegetations - CXR was wnl - / BCx grew MSSA x 2, and one of the cultures grew E.fecalis - UCx was negative - Continue cefepime - / BCx NGTD - ID consulted, appreciate recs, will need at least 2 weeks of IV cefepime, and given worsening back pain and pending T-spine MRI, may be developing an epidural abscess and may require drainage + IV abx. Follow up T-spine MRI. 2. 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 - Previously left AMA on 08/27 - Patient has a recent diagnosis of osteomyelitis/discitis of T8-T9, diagnosed at [facility] s/p [facility]. - Initial culture results were positive for Enterobacter cloacae; recommendations at that time were cefepime 2g q8h - ID consulted, appreciate recs, will need at least 2 weeks of IV cefepime, and given worsening back pain and pending T-spine MRI, may be developing an epidural abscess and may require drainage + IV abx. Follow up T-spine MRI. - with elevated ESR and CRP and 6/7 MRI showing Osteo/Diskitis at the T8/9 level with surrounding inflammatory changes and phlegmanous changes extending cranially towards T5/6 and caudally to T10/11. No definite abscess formation at that time. - Orthopedic surgery was consulted and Dr. Alexandre recommended no surgical intervention at that time. 4. Hypomagnesemia: repleted - monitor 5. Hyponatremia 2/2 hypotonic hypovolemia, resolved 6. Acute kidney injury 2/2 to dehydration. Resolved with hydration - Avoid nephrotoxic medications. - Daily BMP 7. Substance abuse with hx of IV Methamphetamines and Opiates. - Currently no signs/symptoms of withdrawal - HIV / Syphilis screen negative on 08/27 - Ativan PRN 8. Hepatitis C - Liver function is within normal limits - per ID, has been treated 3 times but possibility is high risk for reinfection given persistent IVDU, f/u pending viral load 9. Normocytic anemia - H/H has been stable since early 2019 - No signs of acute bleeding - studies c/w AOCI with known osteomyelitis and elevated inflammatory markers - Daily CBC 10. DVT prophylaxis - Heparin SQ 11. Insomnia: -ambien 5 QHS DISCHARGE MEDICATIONS: Please see below. ALLERGIES: Please see below. PHYSICAL EXAMINATION ON DISCHARGE: VITAL SIGNS: Please see below. GENERAL: HEENT: NECK: CARDIOVASCULAR EXAMINATION: RESPIRATORY EXAMINATION: ABDOMINAL EXAMINATION: EXTREMITIES: SKIN: NEUROLOGICAL EXAMINATION: PSYCHIATRIC EXAMINATION: LABORATORY DATA: Please see below. IMAGING: PROGNOSIS: ACTIVITY: [As tolerated]. DIET: DISCHARGE PLAN: DISPOSITION: Against Medical Advice. DISCHARGE INSTRUCTIONS: 1. . ITEMS TO FOLLOWUP ON ON OUTPATIENT: 1. . DISCHARGE CONDITION: [Stable]. TIME SPENT ON DISCHARGE: Greater than minutes. Vital Signs/I&Os Vital Signs Date Time Temp Pulse Resp B/P (MAP) Pulse Ox O2 Delivery O2 Flow Rate FiO2 09/22/19 06:00 99.3 82 15 149/88 (108) 100 Room Air I&O- Last 24 Hours up to 6 AM 09/22/19 06:00 Intake Total 2760 ml Output Total 2350 ml Balance 410 ml Laboratory Data Labs 24H Laboratory Tests 2 09/22/19 06:17: Nucleated Red Blood Cells % (auto) 0.0, Anion Gap 4L, Glomerular Filtration Rate > 60.0, Calcium Level 9.1, Magnesium Level 1.6L, C-Reactive Protein, Quantitative 0.69H CBC/BMP Laboratory Tests 09/22/19 06:17 Microbiology Microbiology 09/16/19 Blood Culture - Final, Complete NO GROWTH AFTER 5 DAYS 09/15/19 Blood Culture - Final, Complete NO GROWTH AFTER 5 DAYS 09/13/19 Urine Culture - Final, Complete 09/13/19 Blood Culture - Final, Complete Staphylococcus Aureus 09/13/19 Blood Culture - Final, Complete Staphylococcus Aureus Enterococcus Faecalis Discharge Medications No Active Prescriptions or Reported Meds Allergies Coded Allergies: No Known Allergies (Unverified , 10/11/18) SHUN MARTINEZ DO Sep 22, 2019 17:53
== END 2019-09-22 10:42 | disposition left against medical advice (07) | DRG 347 ==
LOC: M ED 08:54 → EEVIPCON 14:54 → M ED INP 14:54 → ENRESERV 15:04 → M MS5PR 16:45 → M MSPAV 09-14 09:57
PROVIDERS: ADMIT Internal Medicine; ATTEND Internal Medicine
PROC: B246YZZ Ultrasonography of Right and Left Heart using Other Contrast (ICD-10-PCS; principal; 2019-09-16 09:07)
DX: M46.44 Discitis, unspecified, thoracic region (principal); N17.9 Acute kidney failure, unspecified; E87.1 Hypo-osmolality and hyponatremia; E83.42 Hypomagnesemia; F11.10 Opioid abuse, uncomplicated; R07.81 Pleurodynia; E86.0 Dehydration; F14.10 Cocaine abuse, uncomplicated; F15.10 Other stimulant abuse, uncomplicated; D64.9 Anemia, unspecified; B18.2 Chronic viral hepatitis C; B95.61 Methicillin susceptible Staphylococcus aureus infection as the cause of diseases classified elsewhere; B96.89 Other specified bacterial agents as the cause of diseases classified elsewhere; G47.00 Insomnia, unspecified; Z11.59 Encounter for screening for other viral diseases

== ENCOUNTER → 2020-07-27 | Outpatient (REF) | payer OTHER ==
[~2020-07-27] MED LIST changes: -MAG400TA PO; +MAGN400T35 PO
== END ==
LOC: M LAB REF 11:07
PROVIDERS: ATTEND Surgery
DX: U07.1 COVID-19 (principal)

== ENCOUNTER → 2023-08-23 | Outpatient (CLI) | payer MEDICAID, SELFPAY ==
[~2023-08-23] MED LIST changes: +LEVO1TAB40 PO; -LEVO750T13 PO
== END ==
LOC: M OUTALCOH 10:33
PROVIDERS: ATTEND Psychiatry & Neurology Psychiatry
DX: F11.10 Opioid abuse, uncomplicated (principal); F16.10 Hallucinogen abuse, uncomplicated